=== PATIENT | male | born 1960 | race Caucasian/White ===

== ENCOUNTER 2017-10-29 19:24 | Emergency (ER) | payer OTHER, SELFPAY ==
[2017-10-29 19:57] LABS: Bilirubin Negative (Negative); Blood, Urine Negative (Negative); Clarity CLEAR (Clear); Glucose, Urine (Dipstick) Negative (Negative); Leukocyte Negative (Negative); Nitrite Negative (Negative); Protein, Urine (Dipstick) 30 mg/dL (Neg-Trace); Specific Gravity, Urine 1.021 (1.002-1.036); pH, Urine 6.5 (5.0-9.0)
[2017-10-29 19:59] LABS: Bacteria/HPF None Seen HPF (None Seen); Hyaline Casts/LPF 0-3 HYALINE CAST LPF (0-3 Hyaline); RBC/HPF 0-3 HPF (0-3); Squamous Epithelial 0-3 HPF (0-3); WBC/HPF 0-3 HPF (0-3)
[2017-10-29 20:23] LABS: #Basophils 0.1 thou/uL (0.0-0.2); #Eosinphils 0.4 thou/uL (0.0-0.7); #Lymphocytes 3.3 thou/uL (1.20-3.40); #Monocytes 0.8 thou/uL (0.11-0.59); #Neutrophils 7.5 thou/uL (1.40-6.50); %Basophils 0.7 % (0.0-1.0); %Eosinophils 3.1 % (0.0-10.0); %Lymphocytes 27.6 % (21.0-51.0); %Monocytes 6.9 % (0.0-10.0); %Neutrophils 61.8 % (42.0-75.0); Hemoglobin 16.9 g/dL (14.0-18.0); Mean Corpuscular HGB CONC 34.2 g/dL (32.0-36.0); Mean Corpuscular Hemoglobin 33.5 pg (27.0-31.0); Mean Corpuscular Volume 97.8 fl (80.0-94.0); Mean Platelet Volume 6.5 fL (7.4-10.4); Platelet Count 299 thou/uL (130-400); RBC Distribution Width 12.8 % (11.5-14.5); Red Blood Cell (RBC) Count 5.05 mill/uL (4.70-6.10); White Blood Cell (WBC) Count 12.1 thou/uL (4.8-10.8)
[2017-10-29 20:47] LABS: ALT (SGPT) 13 U/L (8-55); AST (SGOT) 19 U/L (5-34); Albumin 3.9 g/dL (3.5-5.0); Alkaline Phosphatase 109 U/L (40-150); Anion Gap 11 mmol/L (10-20); BUN (Urea Nitrogen) 19 mg/dL (8.4-25.7); Bilirubin, Total 0.3 mg/dL (0.2-1.2); Calc. Creatinine Clearance 0 mL/min (70-130); Calcium 9.5 mg/dL (7.8-10.44); Carbon Dioxide 24 mmol/L (22-29); Chloride 108 mmol/L (98-107); Estimated GFR-MDRD Greater than 90; Globulin 3.1 g/dL (2.4-3.5); Glucose 102 mg/dL (70-105); Potassium 4.1 mmol/L (3.5-5.1); Sodium 139 mmol/L (136-145)
[2017-10-29] MEDS ORDERED: Ketorolac Tromethamine 30 MG/ML VIAL ONE (22:47)
[2017-10-29] MEDS ORDERED: Cyclobenzaprine 10 MG TAB ONE (22:47)
--- NOTE | 2017-10-29 23:12 | RAD ---
PORTABLE CHEST: 10/29/2017 PROVIDED CLINICAL HISTORY: Wheezing. COMPARISON: None. FINDINGS: The cardiac and mediastinal silhouette are within normal limits. Linear perihilar opacities are note d, suggesting scarring or atelectasis. No focal consolidation, pleural fluid, or pneumothorax appare nt. IMPRESSION: No definite evidence for an acute cardiopulmonary process. POS: [facility]
--- NOTE | 2017-10-29 23:13 | RAD ---
LUMBAR SPINE RADIOGRAPHS THREE VIEWS: 10/29/2017 PROVIDED CLINICAL HISTORY: Low back pain. FINDINGS: Five vzm-gto-ickyqml lumbar type vertebral bodies are present. Lumbar alignment appears normal. Melquiades tebral body heights appear preserved. Pedicles appear intact. Surgical clips are seen. Vascular ca lcifications are seen. IMPRESSION: No evidence for an acute osseous abnormality. POS: [facility]
[2017-10-29] MEDS ORDERED: Morphine 10 MG/ML VIAL ONE (23:43)
--- NOTE | 2017-11-02 22:16 | EKG ---
Test Reason : Blood Pressure : / mmHG Vent. Rate : 057 BPM Atrial Rate : 057 BPM P-R Int : 172 ms QRS Dur : 086 ms QT Int : 450 ms P-R-T Axes : 043 037 128 degrees QTc Int : 438 ms Sinus bradycardia T wave abnormality, consider lateral ischemia Abnormal ECG Confirmed by CHON CUEVAS D.O. ([id number]), film or videotape editor DAWNA CUEVAS ([id number]) on 11/02/2017 10:14:36 PM Referred By: Confirmed By:CHON CUEVAS D.O.
== END 2017-10-30 00:10 | disposition home or self-care (01) ==
LOC: ERS 19:24
DX: M54.17 Radiculopathy, lumbosacral region (principal); I25.2 Old myocardial infarction; I10 Essential (primary) hypertension; F41.9 Anxiety disorder, unspecified; F17.210 Nicotine dependence, cigarettes, uncomplicated; Z79.899 Other long term (current) drug therapy
CPT/HCPCS: 36415; 71045; 72100; 80053; 81003; 81015; 85025; 93005; 96374; 96375; J1885; J2270

== ENCOUNTER 2018-11-06 15:09 | Outpatient (CLI) | payer MEDICARE ==
[~2018-11-06 15:09] MED LIST: Sodium Chloride 0.9% 15 ML NEB ONE
--- NOTE | 2018-11-06 17:06 | PRG ---
DATE OF SERVICE: 11/06/2018 HISTORY: Mr. Silvia De Leon is a 58-year-old gentleman, last seen in the [facility] Center approximately 2 years ago, who presents to the [facility] Center for evaluation of a wound of his left nzfwl-vct-cfjy amputation stump. The patient states that the wound for which he was seen approximately 2 years ago healed completely. He states that approximately 4 weeks ago he may have been bitten by an insect or spider. States that he developed swelling of his left dpkyf-enk-tdtv amputation stump and the previously healed wound opened. He states that he was seen in the emergency department and was placed on a course of p.o. antibiotics, specifically Keflex. The patient states that he also was seen by his primary care physician, Dr. Bryan after being seen in the emergency department. The patient states that he reported to the emergency department again on 10/29/2018 and at this time, placed on Augmentin and clindamycin. The patient was seen again by Dr. Bryan and at this time referred to the Wound Center for further evaluation and treatment. Apparently at the time of the patient's first followup visit with Dr. Bryan, the patient was given a prescription for Bactrim. CT scan of the left thigh showed no evidence of focal abscess or bony destruction. CT scan was obtained at the time of the patient's visit to the emergency department on 10/29/2018. PHYSICAL EXAMINATION: VITAL SIGNS: Temperature 97.6, pulse 67, respirations are 21, and blood pressure 188/78. EXTREMITIES: A wound of the left ialga-kln-miwb amputation stump is present, which measures approximately 3.0 x 3.0 cm. No purulent drainage is associated with the wound. Erythema of the skin surrounding the wound is present. No maceration of the skin of the periwound is noted. ASSESSMENT AND PLAN: 1. Wound of left foqyl-cmp-rjvn amputation stump as described above. Dressing changes of Medihoney followed by an ABD secured with tape will be initiated today. These dressing changes are to be performed on a daily basis after cleansing and irrigation. The patient will be performing his own dressing changes. The patient has been given a prescription for Synalar ointment 0.025% to apply to the emili wound for itching up to b.i.d. the patient has been instructed to continue to cleanse the wound of his left tgdwz-cgg-faog amputation stump with Dove soap and water at the time of dressing changes. I will see Mr. De Leon again in 1 week. 2. Hypertension. 3. Peripheral vascular disease. Job ID: [id number] MTDD
== END 2018-11-06 15:10 | disposition home or self-care (01) ==
LOC: WCC 15:09
PROVIDERS: ATTEND Family Medicine
DX: T87.89 Other complications of amputation stump (principal); I10 Essential (primary) hypertension; I73.9 Peripheral vascular disease, unspecified; Z89.612 Acquired absence of left leg above knee
CPT/HCPCS: 97139; 97602; G0463; 99213; A4218

== ENCOUNTER 2018-11-19 11:11 | Outpatient (CLI) | payer MEDICARE ==
--- NOTE | 2018-11-19 17:30 | PRG ---
DATE OF SERVICE: 11/19/2018 HISTORY: Mr. Silvia De Leon is a 58-year-old gentleman, previously seen in the Wound Center approximately 2 years ago, who now presents to the Wound Center for evaluation of a wound of his left cuoxt-ehi-pxug amputation stump. At the time of the patient's last visit, the patient stated that the wound, for which he was seen approximately 2 years ago, healed completely. He stated that approximately 4 weeks previously, he may have been bitten by an insect or spider. He stated that he developed swelling of his left enspr-kfx-erbt amputation stump and the previously healed wound opened. He stated that he was seen in the emergency department and placed on a course of p.o. antibiotics, specifically Keflex. The patient stated that he was also seen by his primary care physician, Dr. Bryan, after being seen in the emergency department. The patient stated that he reported to the emergency department again on 10/29/2018, and at this time, was placed on Augmentin and clindamycin. The patient was seen again by Dr. Bryan, and at this time, referred to the Wound Center for further evaluation and treatment. Apparently, at the time of the patient's first followup visit with Dr. Bryan, the patient was given a prescription for Bactrim. CT scan of the left thigh showed no evidence of focal abscess or bony destruction. CT scan was obtained at the time of the patient's visit to the emergency department on 10/29/2018. Today, the patient complains of severe pain associated with his left dckqf-umc-ihoh amputation stump. PHYSICAL EXAMINATION: VITAL SIGNS: Temperature 97.6, pulse 69, respirations 22, blood pressure 192/84. EXTREMITIES: A wound of the left emjnv-krq-jdki amputation stump is present, which measures approximately 3.0 x 6.0 cm. The dimensions of the wound at the time of the patient's last visit were approximately 3.0 x 3.0 cm. No purulent drainage is associated with the wound. Erythema of the skin surrounding the wound is present. No maceration of the skin of the periwound is noted. The wound is exquisitely tender to palpation. A culture of the wound was obtained with a culturette. The patient declined excision of tissue for a tissue culture. ASSESSMENT AND PLAN: 1. Wound of left twrpt-lyk-owki amputation stump as described above. Dressing changes of Medihoney and Allevyn are to be performed 3 times per week after cleansing and irrigation with the assistance of Home Health. The patient has also been given a prescription for clindamycin 300 mg, #30, one p.o. t.i.d. x10 days. I will see Mr. De Leon again in 1 week. 2. Hypertension. 3. Peripheral vascular disease. Job ID: [id number]
--- NOTE | 2018-11-20 19:29 | CON ---
DATE OF CONSULTATION: HISTORY OF PRESENT ILLNESS: Mr. De Leon is status post aortobifemoral bypass in [place] in June of 2016. He subsequently underwent a left above knee amputation. He was discharged to home and came to the hospital here the following day with gangrene of his stump. The left limb of his graft was occluded. He subsequently underwent ezvgl-le-bcpc fem-fem bypass and then revision of his amputation with wound VAC placement to closure. The stump did eventually close. About a month ago, he says he got a bug bite on his stump that caused edema. The edema caused the previous VAC site to reopen and it has been draining since. He does not walk. He only uses a wheelchair. He does not even lay down due to pain in his left stump. 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 The femur was also debrided more proximal. He also noticed that for the past month, he has had significant edema of his right leg. He has no history of congestive failure. He has no previous history of DVT or edema. At the time of his admission, white blood cell count is 10.3, BNP is 140, creatinine is 0.82, potassium is 3.9. I have been asked to see him to assess his stump. On physical exam, he has a deformed appearance of his stump due to the previous healing by secondary intention. The hamstring muscles have been debrided way back. The femur is not visible. He does have some open skin. The wound is not currently draining and there is no odor. ASSESSMENT AND PLAN: It sounds like, he has edema in both of his legs from multifactorial source. He is constantly with his legs dependent and his hip joints have been in the right angle. Of course, this decreases venous return and can cause significant amounts of edema. He continues to smoke. He continues to carry probably 80 to 100 pounds of extra weight in his belly. With an elevated BNP, I am going to check an echo to see if he has some element of congestive failure. I will also give him a single dose of Lasix this afternoon to see what that does as far as increasing his urine output. Any sort of revision to his stump would require hip disarticulation due to the previous extensive nature of his vascular disease. I would avoid this at all costs. I will ask Wound Care to see him and start doing dressing changes on his open area of his stump. This will probably be the in-game in his wound treatment. Job ID: [id number]
== END 2018-11-19 11:12 | disposition home or self-care (01) ==
LOC: WCC 11:11
PROVIDERS: ATTEND Family Medicine
DX: T87.89 Other complications of amputation stump (principal); I10 Essential (primary) hypertension; I73.9 Peripheral vascular disease, unspecified; Z89.612 Acquired absence of left leg above knee
CPT/HCPCS: 87070; 87205; A4218

== ENCOUNTER 2018-11-20 02:44 | Inpatient (IN) | payer MEDICARE ==
[2018-11-20] MEDS ORDERED: Ondansetron PF 4 MG/2 ML Vial ONE (03:35)
[2018-11-20] MEDS ORDERED: Morphine 4 MG/ML VIAL ONE (03:35)
[2018-11-20] MEDS ORDERED: HYDROcodone/Acetaminophen 5/325 mg Tablet ONE (04:22)
[2018-11-20] MEDS ORDERED: HYDROcodone/Acetaminophen 10/325 mg Tablet ONE (04:42)
[2018-11-20] MEDS ORDERED: Ondansetron ODT 4 MG TAB SL PRN (05:23)
[2018-11-20] MEDS ORDERED: Ondansetron PF 4 MG/2 ML Vial IVP PRN ×2 (05:23→11:48)
[2018-11-20] MEDS ORDERED: HYDROcodone/Acetaminophen 5/325 mg Tablet PO PRN ×3 (05:23→11:48)
[2018-11-20] MEDS ORDERED: Acetaminophen 325 MG TAB PO PRN ×2 (05:23→11:48)
[2018-11-20 05:57] VITALS: BMI 38.5
--- NOTE | 2018-11-20 08:10 | RAD ---
AP view chest is obtained. The lung HISTORY: Rule out infiltrates AP view chest demonstrates the lungs to be well aerated. No evidence of active intrathoracic disease seen. No evidence of effusions pneumonia or pneumothorax seen IMPRESSION: unremarkable AP view chest
[2018-11-20 09:59] LABS: #Basophils 0.1 thou/uL (0.0-0.2); #Eosinphils 0.5 thou/uL (0.0-0.7); #Lymphocytes 2.8 thou/uL (1.20-3.40); #Neutrophils 5.9 thou/uL (1.40-6.50); %Basophils 0.8 % (0.0-1.0); %Lymphocytes 27.4 % (21.0-51.0); %Monocytes 9.7 % (0.0-10.0); Hemoglobin 13.8 g/dL (14.0-18.0); Mean Corpuscular HGB CONC 33.8 g/dL (32.0-36.0); Mean Corpuscular Hemoglobin 34.2 pg (27.0-31.0); Mean Platelet Volume 6.5 fL (7.4-10.4); Platelet Count 288 thou/uL (130-400); RBC Distribution Width 12.7 % (11.5-14.5); Red Blood Cell (RBC) Count 4.03 mill/uL (4.70-6.10); White Blood Cell (WBC) Count 10.3 thou/uL (4.8-10.8)
[2018-11-20 10:02] LABS: INR-International Normal Ratio 1.1; PTT 35.2 SEC (22.9-36.1); Prothrombin Time 14.2 SEC (12.0-14.7)
[2018-11-20 10:15] LABS: ALT (SGPT) 10 U/L (8-55); AST (SGOT) 20 U/L (5-34); Albumin 3.7 g/dL (3.5-5.0); Alkaline Phosphatase 80 U/L (40-150); Anion Gap 10 mmol/L (10-20); BUN (Urea Nitrogen) 18 mg/dL (8.4-25.7); Bilirubin, Total 0.3 mg/dL (0.2-1.2); Calc. Creatinine Clearance 153 mL/min (70-130); Calcium 9.1 mg/dL (7.8-10.44); Carbon Dioxide 26 mmol/L (22-29); Chloride 106 mmol/L (98-107); Estimated GFR-MDRD Greater than 90; Glucose 85 mg/dL (70-105); Potassium 3.9 mmol/L (3.5-5.1); Protein, Total 6.7 g/dL (6.0-8.3); Sodium 138 mmol/L (136-145)
[2018-11-20] MEDS ORDERED: Guaifenesin DM 100-10/5 ML UDCUP PO PRN (11:48)
[2018-11-20] MEDS ORDERED: Bisacodyl 10 MG SUPP PR PRN (11:48)
[2018-11-20] MEDS ORDERED: traMADol HCl 50 MG TAB PO PRN (11:49)
[2018-11-20] MEDS: Piperacillin/Tazobactam 4.5 GM in Sodium Chloride 0.9% 100 ML IVPB SCH ×2 (13:05→21:41)
[2018-11-20] MEDS: Fentanyl 100 MCG/2 ML VIAL SLOW IVP PRN ×3 (13:05→23:28)
[2018-11-20] MEDS ORDERED: Furosemide 40 MG/4 ML VIAL SLOW IVP SCH (13:30)
[2018-11-20] MEDS ORDERED: Atenolol 50 MG TAB PO SCH (13:30)
[2018-11-20] MEDS ORDERED: Amlodipine 10 MG TAB PO SCH (13:30)
[2018-11-20] MEDS: HYDROcodone/Acetaminophen 10/325 mg Tablet PO PRN (15:50)
--- NOTE | 2018-11-20 15:57 | HP ---
REASON FOR ADMISSION: Left AKA stump infection. HISTORY OF PRESENTING ILLNESS: The patient gives history of having left above knee amputation stump infection from last 6 weeks. He has some purulent drainage. The patient apparently has had two cycles of different antibiotics. The initial one was Keflex and Bactrim, which was started by Dr. Bryan and on the , the patient came to emergency room and was started on Augmentin and clindamycin combination. He has finished both the courses and still has discharge and excruciating pain due to skin excoriation around the stump. The patient also mentions that he has had severe pain for last 2 years and is not happy with just Fairmont that he is getting. The patient also mentions that his right lower extremity has edema, it is buildup of edema from last few months per patient. He states he does not have any heart disease as far as he knows. PAST MEDICAL AND SURGICAL HISTORY: Hypertension, peripheral vascular disease, left below-knee amputation, right to left femoral-femoral bypass, aortobifemoral bypass in 2003, tobacco abuse, hernia repair in 1978. CURRENT MEDICATIONS: The patient is on, 1. Atenolol 50 mg twice daily. 2. Diazepam 10 mg twice daily p.r.n. 3. Norvasc 10 mg daily. 4. Fairmont 10/325 mg one tab q.8h hourly p.r.n. 5. MiraLAX 17 g daily. 6. Lyrica 75 mg twice daily. ALLERGIES: ALLERGIC TO MORPHINE, BUT IS COMFORTABLE TAKING NORCO. PERSONAL HISTORY: The patient smokes 1 pack a day. Does not abuse alcohol or drugs. FAMILY HISTORY: Mother has history of CHF. She is 74 years old. Father is living, has history of emphysema, he is 84 years old now. CODE STATUS: Full. REVIEW OF SYSTEMS: CONSTITUTIONAL: Negative for weight loss or gain, ability to conduct usual activities. SKIN: Negative for rash, itching. EYES: Negative for double vision, pain. ENT/MOUTH: Negative for nose bleeding, neck stiffness, pain, tenderness. CARDIOVASCULAR: Negative for palpitations, dyspnea on exertion, orthopnea. RESPIRATORY: Negative for shortness of breath, wheezing, cough, hemoptysis, fever or night sweats. GASTROINTESTINAL: Negative for poor appetite, abdominal pain, heartburn, nausea , vomiting, constipation, or diarrhea. GENITOURINARY: Negative for urgency, frequency, dysuria, nocturia. MUSCULOSKELETAL: Negative for pain, swelling. NEUROLOGIC/PSYCHIATRIC: Negative for anxiety, depression. ALLERGY/IMMUNOLOGIC: Negative for skin rash, bleeding tendency. PHYSICAL EXAMINATION: GENERAL: The patient is a 58-year-old male who currently complains of pain in his left AKA stump site. VITAL SIGNS: Blood pressure 150/70, pulse 64 per minute, respiratory rate 18 per minute, temperature 97.9 degrees Fahrenheit, saturating 95% on room air. NECK: Supple. No elevated JVD. HEENT: Eyes; extraocular muscles intact. Pupils reacting to light. Oral cavity, mucous membranes are moist. No exudates or congestion. CARDIOVASCULAR SYSTEM: S1, S2 heard. Regular rhythm. RESPIRATORY SYSTEM: Air entry 1+ bilateral. No rales or rhonchi. ABDOMEN: Soft bowel sounds heard. No tenderness, rigidity, or guarding. EXTREMITIES: Left AKA stump site has chronic ulceration with purulent material visible at the center of the stump. Peripheral pulses are 1+ bilateral. He has 1+ peripheral edema in the right lower extremity. Has extensive excoriation around stump. CENTRAL NERVOUS SYSTEM: No gross focal deficits noted. The patient is alert, awake, and oriented well. PSYCHIATRIC SYSTEM: The patient is a bit anxious and wants something for his pain. No hallucinations or delusions. LABORATORY DATA: White count of 10, H and H 13 and 40, platelet count 288, MCV is 101 with 57% neutrophils. PT/INR and PTT within normal limits. Electrolytes stable. BUN 18, creatinine 0.8. Serum glucose 85. Liver enzymes within normal limits. BNP is 140. Albumin is 3.7. Chest x-ray is unremarkable. EKG shows normal sinus rhythm at 63 beats per minute. There is nonspecific ST-T wave changes. CLINICAL IMPRESSION AND PLAN: The patient will be admitted to medical floor for left above knee amputation stump infection. We will obtain deep wound cultures from the stump area and place him on vancomycin and Zosyn for now. The patient is requesting fentanyl or stronger for his pain. We will also add lidocaine along with [place]mont. We will continue Norvasc, atenolol, MiraLAX, Senna at his home dosages. I have offered him Nicoderm patches, but the patient has refused the same. Pain Management consultation with Dr. Packer will be requested in view of the patient's chronic pain from last 2 years. At present, he also has excoriations around the left AKA stump and is adding to his chronic pain symptoms. Wound Care will also be consulted. I have spoken to Dr. Yaakov Villarreal, who has seen him before for revision of his AKA stump in the past. Job ID: [id number] MTDD
--- NOTE | 2018-11-20 17:52 | CON ---
DATE OF CONSULTATION: 11/20/2018 REASON FOR CONSULTATION: Stump pain after AKA. HISTORY OF PRESENT ILLNESS: The patient is a 58-year-old gentleman, status post left AKA 2 years ago with persistent chronic pain in the amputated leg, consistent with phantom limb pain. Six weeks ago, he began having increasing pain over his usual phantom limb type symptoms. He has purulent drainage and cellulitis and infection involving his stump. He has been on two rounds of antibiotics without improvement and is admitted for further treatment of both his pain and his AKA stump infection. He rates his pain at 10/10, previously received a single dose of fentanyl 25 mcg, and now rated at 7/10. He is on Lyrica 75 mg b.i.d. This has helped with the neuropathic pain and he states it is his best pain medicine with respect to relieving his symptoms, but he is concerned because he is having some swelling in the right lower extremity and fears the Lyrica maybe to blame for the swelling. He also was taking Bradley two to four daily with some benefit, but not much. His pain has increased significantly because of this ongoing infection. He denies any cardiovascular disease. He is not a diabetic. PAST MEDICAL HISTORY AND SURGICAL HISTORY: Consistent for the AKA. He has peripheral vascular disease, status post left AKA. He has had a fem-fem bypass and aortobifemoral bypass. He is a smoker and continues to smoke. CURRENT MEDICATIONS: Include; 1. Atenolol. 2. Diazepam. 3. Norvasc. 4. Bradley t.i.d. 5. MiraLAX. 6. Lyrica 75 b.i.d. ALLERGIES: NO KNOWN ALLERGIES. NOTE THAT THE PATIENT HAS REPORTED ALLERGY TO MORPHINE, BUT HE HAS HAD MORPHINE AND HAS NOT HAD ADVERSE EFFECT, BUT STATES IT DOES NOT WORK. SOCIAL HISTORY: He smokes a pack a day. Denies any alcohol or drug abuse issues. FAMILY HISTORY: Noncontributory. Father is living. Both have history of COPD, father and mother. REVIEW OF SYSTEMS: Negative with exception of HPI. PHYSICAL EXAMINATION: GENERAL: A 58-year-old gentleman, sitting up in a wheelchair. He is alert, oriented, conversive, in no distress, but uncomfortable. He is belligerent. VITAL SIGNS: BP 140/62, pulse was 70. Respiratory rate is nonlabored. NECK: Supple. No rigidity. HEENT: Unremarkable. HEART: Regular. ABDOMINAL: Soft. He is overweight. EXTREMITIES: Left AKA site, chronic ulceration of the stump. There is purulent drainage. There is erythema and induration consistent with cellulitis. Right lower extremity 1+ peripheral edema. WILLOW ANALYST: No significant side effects. LABORATORY DATA: As per in the chart. IMPRESSION AND PLAN: Status post left above-knee amputation. Symptoms consistent with phantom limb pain with acute exacerbation from ongoing cellulitis and stump infection. He may have a stump neuroma as well. We will place a fentanyl patch, continue Lyrica but increase the dose to t.i.d. He can have Bradley q.i.d. After his infection is healed, phantom limb pain could be treated effectively with dorsal root ganglion stimulation, and indeed that is the most efficacious treatment for that condition. We can follow up as an outpatient if needed. Job ID: [id number]
[2018-11-20] MEDS: Atenolol 50 MG TAB PO SCH (20:18)
[2018-11-20] MEDS: Senokot S 8.6-50 MG TAB PO SCH (20:18)
[2018-11-20] MEDS: Famotidine 20 MG TAB PO SCH (20:18)
[2018-11-20] MEDS: Pregabalin 75 MG CAP PO SCH (20:19)
[2018-11-20] MEDS: HYDROcodone/Acetaminophen 7.5/325 mg Tablet PO PRN (20:20)
[2018-11-20] MEDS: Lidocaine Patch Removal 1 EACH TOP SCH ×2 (20:22→20:24)
[2018-11-20] MEDS ORDERED: Vancomycin HCl 1 GM in Premix Bag 1 BAG IVPB SCH (21:00)
[2018-11-20] MEDS: Zolpidem Tartrate 5 MG TAB PO PRN (23:36)
[2018-11-21] MEDS: HYDROcodone/Acetaminophen 10/325 mg Tablet PO PRN ×6 (00:49→23:19)
[2018-11-21] MEDS: Vancomycin HCl 1.5 GM in Sodium Chloride 0.9% 250 ML 300 ML IVPB SCH ×2 (00:52→12:44)
[2018-11-21] MEDS: hydrALAZINE 20 MG/ML VIAL SLOW IVP PRN ×2 (01:08→06:33)
[2018-11-21] MEDS: Fentanyl 100 MCG/2 ML VIAL SLOW IVP PRN ×2 (04:40→08:35)
[2018-11-21] MEDS: Piperacillin/Tazobactam 4.5 GM in Sodium Chloride 0.9% 100 ML IVPB SCH ×3 (04:50→19:57)
[2018-11-21 05:19] LABS: #Basophils 0.1 thou/uL (0.0-0.2); #Eosinphils 0.8 thou/uL (0.0-0.7); #Lymphocytes 2.9 thou/uL (1.20-3.40); #Neutrophils 5.9 thou/uL (1.40-6.50); %Eosinophils 7.4 % (0.0-10.0); %Lymphocytes 27.4 % (21.0-51.0); %Monocytes 9.3 % (0.0-10.0); %Neutrophils 54.9 % (42.0-75.0); Hemoglobin 14.5 g/dL (14.0-18.0); Mean Corpuscular HGB CONC 32.8 g/dL (32.0-36.0); Mean Corpuscular Hemoglobin 33.6 pg (27.0-31.0); Mean Platelet Volume 6.8 fL (7.4-10.4); Platelet Count 297 thou/uL (130-400); RBC Distribution Width 12.6 % (11.5-14.5); Red Blood Cell (RBC) Count 4.32 mill/uL (4.70-6.10); White Blood Cell (WBC) Count 10.7 thou/uL (4.8-10.8)
[2018-11-21 05:34] LABS: Anion Gap 11 mmol/L (10-20); BUN (Urea Nitrogen) 16 mg/dL (8.4-25.7); Calc. Creatinine Clearance 143 mL/min (70-130); Calcium 9.5 mg/dL (7.8-10.44); Carbon Dioxide 26 mmol/L (22-29); Chloride 103 mmol/L (98-107); Estimated GFR-MDRD 89; Glucose 86 mg/dL (70-105); Potassium 3.9 mmol/L (3.5-5.1); Sodium 136 mmol/L (136-145)
[2018-11-21] MEDS: Amlodipine 10 MG TAB PO SCH (08:33)
[2018-11-21] MEDS: Senokot S 8.6-50 MG TAB PO SCH ×2 (08:34→19:32)
[2018-11-21] MEDS: Famotidine 20 MG TAB PO SCH ×2 (08:34→19:33)
[2018-11-21] MEDS: Lidocaine 5% Patch TD SCH (08:34)
[2018-11-21] MEDS: Polyethylene Glycol 3350 17 GM Packet PO SCH (08:34)
[2018-11-21] MEDS: Pregabalin 75 MG CAP PO SCH ×2 (08:40→19:33)
[2018-11-21] MEDS: Atenolol 50 MG TAB PO SCH ×2 (08:42→19:33)
[2018-11-21] MEDS: Enoxaparin Sodium 40 MG/0.4 ML SYRINGE SC SCH (08:47)
--- NOTE | 2018-11-21 12:31 | PDOC.PN ---
- Subjective Encounter Start Date: 11/21/18 Encounter Start Time: 08:00 -: old records requested/rev Patient seen and examined. No new complaints. No overnight events pt has lot of pain at stump site - Objective Resuscitation Status - Order Detail: 11/20/18 11:41 Resuscitation Status Routine Resuscitation Status: FULL: Full Resuscitation MAR Reviewed: Yes Vital Signs & Weight: Vital Signs (12 hours) Temp Pulse Resp BP BP Pulse Ox 11/21/18 08:50 94 L 11/21/18 08:42 64 161/66 H 11/21/18 08:33 56 L 161/66 H 11/21/18 07:25 97.8 F 56 L 19 161/66 H 94 L 11/21/18 06:33 60 185/71 H 11/21/18 06:00 185/71 H 11/21/18 01:08 64 184/74 H Weight Admit Weight 246 lb 6 oz Weight 246 lb 6 oz I&O: 11/20/18 11/21/18 11/22/18 06:59 06:59 06:59 Intake Total 1320 Balance 1320 Result Diagrams: 11/21/18 04:35 11/21/18 04:35 Phys Exam - Physical Examination Constitutional: NAD HEENT: PERRLA, moist MMs, sclera anicteric Neck: no JVD, supple Respiratory: no wheezing, no rales, no rhonchi Cardiovascular: RRR, no significant murmur, no rub Gastrointestinal: soft, non-tender, no distention, positive bowel sounds Musculoskeletal: no edema, pulses present left AKA Neurological: non-focal, normal sensation Lymphatic: no nodes Psychiatric: normal affect Skin: no rash, normal turgor Dx/Plan (1) Amputation stump infection Code(s): T87.40 - INFECTION OF AMPUTATION STUMP, UNSPECIFIED EXTREMITY Status : Acute (2) Above knee amputation of left lower extremity Code(s): Z89.612 - ACQUIRED ABSENCE OF LEFT LEG ABOVE KNEE Status: Chronic (3) CAD (coronary artery disease) Code(s): I25.10 - ATHSCL HEART DISEASE OF [place] CORONARY ARTERY W/O ANG PCTRS Status: Chronic Qualifiers: (4) CKD (chronic kidney disease) stage 3, GFR 30-59 ml/min Status: Chronic (5) COPD (chronic obstructive pulmonary disease) Status: Chronic Qualifiers: (6) Chronic prescription opiate use Code(s): Z79.891 - DATABASES SOFTWARE CONSULTANT (CURRENT) USE OF OPIATE ANALGESIC Status: Chronic (7) Dyslipidemia Code(s): E78.5 - HYPERLIPIDEMIA, UNSPECIFIED Status: Chronic (8) GERD (gastroesophageal reflux disease) Code(s): K21.9 - GASTRO-ESOPHAGEAL REFLUX DISEASE WITHOUT ESOPHAGITIS Status: Chronic Qualifiers: (9) HTN (hypertension) Code(s): I10 - ESSENTIAL (PRIMARY) HYPERTENSION Status: Chronic Qualifiers: (10) Macrocytic anemia Code(s): D53.9 - NUTRITIONAL ANEMIA, UNSPECIFIED Status: Chronic (11) Obesity (BMI 30-39.9) Code(s): E66.9 - OBESITY, UNSPECIFIED Status: Chronic (12) PVD (peripheral vascular disease) Code(s): I73.9 - PERIPHERAL VASCULAR DISEASE, UNSPECIFIED Status: Chronic - Plan cont current plan of care, continue antibiotics * curently on vancomycin and zosyn for stump infection * pain clinic recommendation noted, will add fentanyl patch. * medication reviewed as below * symptomatic treatment Review of Systems - Review of Systems Eyes: negative: Pain, Vision Change, Conjunctivae Inflammation, Eyelid Inflammation, Redness, Other ENT: negative: Ear Pain, Ear Discharge, Nose Pain, Nose Discharge, Nose Congestion, Mouth Pain, Mouth Swelling, Throat Pain, Throat Swelling, Other Respiratory: negative: Cough, Dry, Shortness of Breath, Hemoptysis, SOB with Excertion, Pleuritic Pain, Sputum, Wheezing Cardiovascular: negative: chest pain, palpitations, orthopnea, paroxysmal nocturnal dyspnea, edema, light headedness, other Gastrointestinal: negative: Nausea, Vomiting, Abdominal Pain, Diarrhea, Constipation, Melena, Hematochezia, Other Genitourinary: negative: Dysuria, Frequency, Incontinence, Hematuria, Retention , Other Musculoskeletal: Leg Pain. negative: Neck Pain, Shoulder Pain, Arm Pain, Back Pain, Hand Pain, Foot Pain, Other - Medications/Allergies Allergies/Adverse Reactions: Allergies Allergy/AdvReac Type Severity Reaction Status Date / Time morphine Allergy Rash Verified 06/19/16 18:09 Medications: Current Medications Acetaminophen (Tylenol) 650 mg PO Q4H PRN PRN Reason: Headache/Fever Hydrocodone Bitart/Acetaminophen ([place] 10/325) 1 tab PO Q4H PRN PRN Reason: Severe Pain (7-10) Last Admin: 11/21/18 08:44 Dose: 1 tab Hydrocodone Bitart/Acetaminophen ([place] 5/325) 1 tab PO Q4H PRN PRN Reason: Mild Pain (1-3) Hydrocodone Bitart/Acetaminophen ([place] 7.5/325) 1 tab PO Q4H PRN PRN Reason: Moderate Pain (4-6) Last Admin: 11/20/18 20:20 Dose: 1 tab Amlodipine Besylate (Norvasc) 10 mg PO DAILY [facility] Last Admin: 11/21/18 08:33 Dose: 10 mg Atenolol (Tenormin) 50 mg PO BID [facility] Last Admin: 11/21/18 08:42 Dose: 50 mg Bisacodyl (Dulcolax) 10 mg [place] DAILYPRN PRN PRN Reason: Constipation Enoxaparin Sodium (Lovenox) 40 mg SC 0900 [facility] Last Admin: 11/21/18 08:47 Dose: Not Given Famotidine (Pepcid) 20 mg PO BID [facility] Last Admin: 11/21/18 08:34 Dose: 20 mg Fentanyl (Sublimaze) 25 mcg SLOW IVP Q4H PRN PRN Reason: Severe Pain (7-10) Last Admin: 11/21/18 08:35 Dose: 25 mcg Fentanyl (Duragesic) 25 mcg TD Q3D [facility] Guaifenesin/Dextromethorphan (Robitussin Dm) 15 ml PO Q4H PRN PRN Reason: Cough Hydralazine HCl (Apresoline) 10 mg SLOW IVP Q4H PRN PRN Reason: Hypertension Last Admin: 11/21/18 06:33 Dose: 10 mg Piperacillin Sod/Tazobactam (Sod 4.5 gm/ Sodium Chloride) 100 mls @ 200 mls/hr IVPB Q8HR [facility] Last Admin: 11/21/18 04:50 Dose: 100 mls Vancomycin HCl 1.5 gm/ Sodium (Chloride) 300 mls @ 200 mls/hr IVPB 0100,1300 [facility] Last Admin: 11/21/18 00:52 Dose: 300 mls Lidocaine (Lidoderm 5% Patch) 1 patch TD DAILY [facility] Last Admin: 11/21/18 08:34 Dose: Not Given Miscellaneous Medication (Pharmacy To Dose) 0 each IVPB .DAILY PRN PRN Reason: LABS Miscellaneous Medication (Lidocaine Patch Removal) 0 each TOP 2100 [facility] Last Admin: 11/20/18 20:24 Dose: Not Given Ondansetron HCl (Zofran) 4 mg IVP Q6H PRN PRN Reason: Nausea/Vomiting Polyethylene Glycol (Miralax) 17 gm PO DAILY [facility] Last Admin: 11/21/18 08:34 Dose: Not Given Pregabalin (Lyrica) 75 mg PO BID [facility] Last Admin: 11/21/18 08:40 Dose: 75 mg Senna/Docusate Sodium (Senokot S) 2 tab PO BID [facility] Last Admin: 11/21/18 08:34 Dose: 2 tab Tramadol HCl (Ultram) 50 mg PO Q6H PRN PRN Reason: Pain Zolpidem Tartrate (Ambien) 5 mg PO HSPRN PRN PRN Reason: Insomnia Last Admin: 11/20/18 23:36 Dose: 5 mg
[2018-11-21] MEDS ORDERED: Bacitracin Zinc Ointment 30 gm TUBE TOP PRN (15:13)
[2018-11-21] MEDS: Lidocaine Patch Removal 1 EACH TOP SCH (19:35)
[2018-11-21] MEDS: Bacitracin Zinc Ointment 30 gm TUBE TOP SCH (19:35)
--- NOTE | 2018-11-21 21:22 | EKG ---
Test Reason : PREOP Blood Pressure : / mmHG Vent. Rate : 063 BPM Atrial Rate : 063 BPM P-R Int : 170 ms QRS Dur : 086 ms QT Int : 440 ms P-R-T Axes : 036 015 136 degrees QTc Int : 450 ms Normal sinus rhythm T wave abnormality, consider lateral ischemia Abnormal ECG When compared with ECG of 29-OCT-2017 21:06, No significant change was found Confirmed by Jesus DIETZ ([id number]) on 11/21/2018 9:22:13 PM Referred By: LINDA Confirmed By:Jesus DIETZ
[2018-11-22] MEDS: Vancomycin HCl 1.5 GM in Sodium Chloride 0.9% 250 ML 300 ML IVPB SCH ×2 (00:54→12:57)
[2018-11-22] MEDS: hydrALAZINE 20 MG/ML VIAL SLOW IVP PRN ×2 (00:54→08:20)
[2018-11-22] MEDS: HYDROcodone/Acetaminophen 10/325 mg Tablet PO PRN ×5 (03:13→20:53)
[2018-11-22] MEDS: Piperacillin/Tazobactam 4.5 GM in Sodium Chloride 0.9% 100 ML IVPB SCH ×3 (06:14→21:06)
[2018-11-22] MEDS: Atenolol 50 MG TAB PO SCH ×2 (08:18→20:54)
[2018-11-22] MEDS: Senokot S 8.6-50 MG TAB PO SCH ×2 (08:18→20:57)
[2018-11-22] MEDS: Famotidine 20 MG TAB PO SCH ×2 (08:19→20:54)
[2018-11-22] MEDS: Pregabalin 75 MG CAP PO SCH ×2 (08:19→20:55)
[2018-11-22] MEDS: Amlodipine 10 MG TAB PO SCH (08:20)
[2018-11-22] MEDS ORDERED: Artificial Tears 18 DROP/0.9 ML EA EYE PRN (08:25)
[2018-11-22] MEDS ORDERED: Cepastat Lozenges 1 LOZ PO PRN (08:25)
[2018-11-22] MEDS ORDERED: cloNIDine 0.1 MG TAB PO PRN (08:25)
[2018-11-22] MEDS ORDERED: Diabetic Tussin 200 MG/10 ML UDCUP PO PRN (08:25)
[2018-11-22] MEDS ORDERED: Loperamide HCl 2 MG CAP PO PRN (08:25)
[2018-11-22] MEDS ORDERED: Loratadine 10 MG TAB PO PRN (08:25)
[2018-11-22] MEDS ORDERED: Ondansetron ODT 4 MG TAB PO PRN (08:25)
[2018-11-22] MEDS ORDERED: Sodium Chloride 0.65% Nasal 44 ML BOT EA NARE PRN (08:25)
[2018-11-22] MEDS: Polyethylene Glycol 3350 17 GM Packet PO SCH (08:38)
[2018-11-22] MEDS: Enoxaparin Sodium 40 MG/0.4 ML SYRINGE SC SCH (08:38)
[2018-11-22] MEDS: Bacitracin Zinc Ointment 30 gm TUBE TOP SCH ×2 (08:39→20:49)
[2018-11-22] MEDS: Lidocaine 5% Patch TD SCH (08:39)
--- NOTE | 2018-11-22 11:45 | PDOC.PN ---
- Subjective Encounter Start Date: 11/22/18 Encounter Start Time: 10:00 Patient seen and examined. No new complaints. No overnight events - Objective Resuscitation Status - Order Detail: 11/20/18 11:41 Resuscitation Status Routine Resuscitation Status: FULL: Full Resuscitation MAR Reviewed: Yes Vital Signs & Weight: Vital Signs (12 hours) Temp Pulse Resp BP BP Pulse Ox 11/22/18 10:04 187/83 H 11/22/18 09:00 96 11/22/18 08:20 60 200/65 H 11/22/18 08:18 60 200/65 H 11/22/18 08:00 97.6 F 59 L 16 200/65 H 96 11/22/18 04:00 97.5 F L 68 18 178/92 H 94 L 11/22/18 00:54 69 11/22/18 00:00 98.4 F 69 18 96 Weight Admit Weight 246 lb 6 oz Weight 246 lb 6 oz I&O: 11/21/18 11/22/18 11/23/18 06:59 06:59 06:59 Intake Total 1320 1420 Output Total 1600 Balance 1320 -180 Result Diagrams: 11/21/18 04:35 11/21/18 04:35 Phys Exam - Physical Examination Constitutional: NAD HEENT: PERRLA, moist MMs, sclera anicteric Neck: no JVD, supple Respiratory: no wheezing, no rales, no rhonchi Cardiovascular: RRR, no significant murmur, no rub Gastrointestinal: soft, non-tender, no distention, positive bowel sounds left AKA Neurological: non-focal, normal sensation Lymphatic: no nodes Psychiatric: normal affect Skin: no rash, normal turgor Dx/Plan (1) Amputation stump infection Code(s): T87.40 - INFECTION OF AMPUTATION STUMP, UNSPECIFIED EXTREMITY Status : Acute (2) Above knee amputation of left lower extremity Code(s): Z89.612 - ACQUIRED ABSENCE OF LEFT LEG ABOVE KNEE Status: Chronic (3) CAD (coronary artery disease) Code(s): I25.10 - ATHSCL HEART DISEASE OF [place] CORONARY ARTERY W/O ANG PCTRS Status: Chronic Qualifiers: (4) CKD (chronic kidney disease) stage 3, GFR 30-59 ml/min Status: Chronic (5) COPD (chronic obstructive pulmonary disease) Status: Chronic Qualifiers: (6) Chronic prescription opiate use Code(s): Z79.891 - [employer]ODUCTION SUPPORT [employer]INE[employer] (CURRENT) USE OF OPIATE ANALGESIC Status: Chronic (7) Dyslipidemia Code(s): E78.5 - HYPERLIPIDEMIA, UNSPECIFIED Status: Chronic (8) GERD (gastroesophageal reflux disease) Code(s): K21.9 - GASTRO-ESOPHAGEAL REFLUX DISEASE WITHOUT ESOPHAGITIS Status: Chronic Qualifiers: (9) HTN (hypertension) Code(s): I10 - ESSENTIAL (PRIMARY) HYPERTENSION Status: Chronic Qualifiers: (10) Macrocytic anemia Code(s): D53.9 - NUTRITIONAL ANEMIA, UNSPECIFIED Status: Chronic (11) Obesity (BMI 30-39.9) Code(s): E66.9 - OBESITY, UNSPECIFIED Status: Chronic (12) PVD (peripheral vascular disease) Code(s): I73.9 - PERIPHERAL VASCULAR DISEASE, UNSPECIFIED Status: Chronic - Plan cont current plan of care, continue antibiotics * continue pain control * he will need outpt pain clinic follow up for his chronic pain management * medication reviewed as below * symptomatic treatment * continue empiric antibiotics * add hydralazin and clonidine as needed for Hypertension. Review of Systems - Review of Systems Eyes: negative: Pain, Vision Change, Conjunctivae Inflammation, Eyelid Inflammation, Redness, Other ENT: negative: Ear Pain, Ear Discharge, Nose Pain, Nose Discharge, Nose Congestion, Mouth Pain, Mouth Swelling, Throat Pain, Throat Swelling, Other Respiratory: negative: Cough, Dry, Shortness of Breath, Hemoptysis, SOB with Excertion, Pleuritic Pain, Sputum, Wheezing Cardiovascular: negative: chest pain, palpitations, orthopnea, paroxysmal nocturnal dyspnea, edema, light headedness, other Gastrointestinal: negative: Nausea, Vomiting, Abdominal Pain, Diarrhea, Constipation, Melena, Hematochezia, Other Genitourinary: negative: Dysuria, Frequency, Incontinence, Hematuria, Retention , Other Skin: negative: Rash, Lesions, Tyrel, Bruising, Other - Medications/Allergies Allergies/Adverse Reactions: Allergies Allergy/AdvReac Type Severity Reaction Status Date / Time morphine Allergy Rash Verified 06/19/16 18:09 Medications: Current Medications Acetaminophen (Tylenol) 650 mg PO Q4H PRN PRN Reason: Headache/Fever Hydrocodone Bitart/Acetaminophen ([place] 10/325) 1 tab PO Q4H PRN PRN Reason: Severe Pain (7-10) Last Admin: 11/22/18 03:13 Dose: 1 tab Hydrocodone Bitart/Acetaminophen ([place] 5/325) 1 tab PO Q4H PRN PRN Reason: Mild Pain (1-3) Hydrocodone Bitart/Acetaminophen ([place] 7.5/325) 1 tab PO Q4H PRN PRN Reason: Moderate Pain (4-6) Last Admin: 11/20/18 20:20 Dose: 1 tab Amlodipine Besylate (Norvasc) 10 mg PO DAILY [facility] Last Admin: 11/22/18 08:20 Dose: 10 mg Artificial Tears (Tears Naturale) 2 drop EA EYE PRN PRN PRN Reason: Dry Eyes Atenolol (Tenormin) 50 mg PO BID [facility] Last Admin: 11/22/18 08:18 Dose: 50 mg Bacitracin Zinc (Bacitracin Zinc Ointment 30 Gm) 0 gm TOP Q12HR [facility] Last Admin: 11/22/18 08:39 Dose: 1 applic Bacitracin Zinc (Bacitracin Zinc Ointment 30 Gm) 0 gm TOP PRN PRN PRN Reason: Wound Care Bisacodyl (Dulcolax) 10 mg [place] DAILYPRN PRN PRN Reason: Constipation Clonidine (Catapres) 0.1 mg PO Q4H PRN PRN Reason: SBP GREATER THAN 160 Enoxaparin Sodium (Lovenox) 40 mg SC 0900 [facility] Last Admin: 11/22/18 08:38 Dose: Not Given Famotidine (Pepcid) 20 mg PO BID [facility] Last Admin: 11/22/18 08:19 Dose: 20 mg Fentanyl (Sublimaze) 25 mcg SLOW IVP Q4H PRN PRN Reason: Severe Pain (7-10) Last Admin: 11/21/18 08:35 Dose: 25 mcg Fentanyl (Duragesic) 25 mcg TD Q3D [facility] Last Admin: 11/21/18 12:40 Dose: 25 mcg Guaifenesin (Robitussin Sf) 200 mg PO Q4H PRN PRN Reason: Cough Guaifenesin/Dextromethorphan (Robitussin Dm) 15 ml PO Q4H PRN PRN Reason: Cough Hydralazine HCl (Apresoline) 10 mg SLOW IVP Q4H PRN PRN Reason: Hypertension Last Admin: 11/22/18 00:54 Dose: 10 mg Piperacillin Sod/Tazobactam (Sod 4.5 gm/ Sodium Chloride) 100 mls @ 200 mls/hr IVPB Q8HR [facility] Last Admin: 11/22/18 06:14 Dose: 100 mls Vancomycin HCl 1.5 gm/ Sodium (Chloride) 300 mls @ 200 mls/hr IVPB 0100,1300 [facility] Last Admin: 11/22/18 00:54 Dose: 300 mls Lidocaine (Lidoderm 5% Patch) 1 patch TD DAILY [facility] Last Admin: 11/22/18 08:39 Dose: Not Given Loperamide HCl (Imodium) 2 mg PO PRN PRN PRN Reason: Diarrhea/Loose Stools Loratadine (Claritin) 10 mg PO DAILYPRN PRN PRN Reason: Sinus Symptoms Miscellaneous Medication (Pharmacy To Dose) 0 each IVPB .DAILY PRN PRN Reason: LABS Miscellaneous Medication (Lidocaine Patch Removal) 0 each TOP 2100 [facility] Last Admin: 11/21/18 19:35 Dose: Not Given Ondansetron HCl (Zofran) 4 mg IVP Q6H PRN PRN Reason: Nausea/Vomiting Ondansetron HCl (Zofran Odt) 4 mg PO Q6H PRN PRN Reason: Nausea/Vomiting Polyethylene Glycol (Miralax) 17 gm PO DAILY [facility] Last Admin: 11/22/18 08:38 Dose: Not Given Pregabalin (Lyrica) 75 mg PO BID [facility] Last Admin: 11/22/18 08:19 Dose: 75 mg Senna/Docusate Sodium (Senokot S) 2 tab PO BID [facility] Last Admin: 11/22/18 08:18 Dose: 2 tab Sodium Chloride ([place] Nasal [place] 0.65%) 0 ml EA NARE QIDPRN PRN PRN Reason: Nasal Congestion Throat Lozenges (Cepastat Lozenges) 1 tiffanie PO Q2H PRN PRN Reason: Sore Throat Tramadol HCl (Ultram) 50 mg PO Q6H PRN PRN Reason: Pain Zolpidem Tartrate (Ambien) 5 mg PO HSPRN PRN PRN Reason: Insomnia Last Admin: 11/20/18 23:36 Dose: 5 mg
[2018-11-22 12:32] LABS: Vancomycin, Trough 17.7 ug/mL
[2018-11-22] MEDS ORDERED: Fentanyl 100 MCG/2 ML VIAL SLOW IVP PRN (14:35)
[2018-11-22] MEDS: Lidocaine Patch Removal 1 EACH TOP SCH (20:55)
[2018-11-22] MEDS: Zolpidem Tartrate 5 MG TAB PO PRN (22:57)
[2018-11-23] MEDS: Vancomycin HCl 1.5 GM in Sodium Chloride 0.9% 250 ML 300 ML IVPB SCH ×2 (00:48→14:18)
[2018-11-23] MEDS: HYDROcodone/Acetaminophen 10/325 mg Tablet PO PRN ×6 (00:49→20:52)
[2018-11-23] MEDS: Piperacillin/Tazobactam 4.5 GM in Sodium Chloride 0.9% 100 ML IVPB SCH ×3 (04:56→23:50)
[2018-11-23] MEDS: Pregabalin 75 MG CAP PO SCH ×2 (08:38→20:03)
[2018-11-23] MEDS: Famotidine 20 MG TAB PO SCH ×2 (08:39→20:04)
[2018-11-23] MEDS: Atenolol 50 MG TAB PO SCH ×2 (08:39→20:09)
[2018-11-23] MEDS: Senokot S 8.6-50 MG TAB PO SCH ×2 (08:39→20:04)
[2018-11-23] MEDS: Polyethylene Glycol 3350 17 GM Packet PO SCH (08:40)
[2018-11-23] MEDS: Enoxaparin Sodium 40 MG/0.4 ML SYRINGE SC SCH (08:40)
[2018-11-23] MEDS: Amlodipine 10 MG TAB PO SCH (08:40)
[2018-11-23] MEDS: Lidocaine 5% Patch TD SCH (08:41)
[2018-11-23] MEDS: Bacitracin Zinc Ointment 30 gm TUBE TOP SCH ×2 (08:42→20:04)
[2018-11-23] MEDS ORDERED: Furosemide 40 MG/4 ML VIAL SLOW IVP SCH (11:15)
--- NOTE | 2018-11-23 11:59 | PDOC.PN ---
- Subjective Encounter Start Date: 11/23/18 Encounter Start Time: 09:30 pt c/o leg edema, his pain is not well controlled - Objective Resuscitation Status - Order Detail: 11/20/18 11:41 Resuscitation Status Routine Resuscitation Status: FULL: Full Resuscitation MAR Reviewed: Yes Vital Signs & Weight: Vital Signs (12 hours) Temp Pulse Resp BP BP BP Pulse Ox 11/23/18 11:16 97.7 F 67 16 164/79 H 11/23/18 08:40 60 157/56 H 11/23/18 08:39 60 157/56 H 11/23/18 08:36 96 11/23/18 08:00 96.2 F L 59 L 16 200/82 H 96 11/23/18 00:00 97.9 F 53 L 16 151/58 H 91 L Weight Admit Weight 246 lb 6 oz Weight 246 lb 6 oz I&O: 11/22/18 11/23/18 11/24/18 06:59 06:59 06:59 Intake Total 1420 2830 Output Total 1600 1025 Balance -180 1805 Result Diagrams: 11/21/18 04:35 11/21/18 04:35 Phys Exam - Physical Examination Constitutional: NAD HEENT: PERRLA, moist MMs, sclera anicteric Neck: no JVD, supple Respiratory: no wheezing, no rales, no rhonchi Cardiovascular: RRR, no significant murmur, no rub Gastrointestinal: soft, non-tender, no distention, positive bowel sounds obesity left AKA Neurological: non-focal, normal sensation Lymphatic: no nodes Psychiatric: normal affect Skin: no rash, normal turgor Dx/Plan (1) Amputation stump infection Code(s): T87.40 - INFECTION OF AMPUTATION STUMP, UNSPECIFIED EXTREMITY Status : Acute (2) Above knee amputation of left lower extremity Code(s): Z89.612 - ACQUIRED ABSENCE OF LEFT LEG ABOVE KNEE Status: Chronic (3) CAD (coronary artery disease) Code(s): I25.10 - ATHSCL HEART DISEASE OF [place] CORONARY ARTERY W/O ANG PCTRS Status: Chronic Qualifiers: (4) CKD (chronic kidney disease) stage 3, GFR 30-59 ml/min Status: Chronic (5) COPD (chronic obstructive pulmonary disease) Status: Chronic Qualifiers: (6) Chronic prescription opiate use Code(s): Z79.891 - SNF (CURRENT) USE OF OPIATE ANALGESIC Status: Chronic (7) Dyslipidemia Code(s): E78.5 - HYPERLIPIDEMIA, UNSPECIFIED Status: Chronic (8) GERD (gastroesophageal reflux disease) Code(s): K21.9 - GASTRO-ESOPHAGEAL REFLUX DISEASE WITHOUT ESOPHAGITIS Status: Chronic Qualifiers: (9) HTN (hypertension) Code(s): I10 - ESSENTIAL (PRIMARY) HYPERTENSION Status: Chronic Qualifiers: (10) Macrocytic anemia Code(s): D53.9 - NUTRITIONAL ANEMIA, UNSPECIFIED Status: Chronic (11) Obesity (BMI 30-39.9) Code(s): E66.9 - OBESITY, UNSPECIFIED Status: Chronic (12) PVD (peripheral vascular disease) Code(s): I73.9 - PERIPHERAL VASCULAR DISEASE, UNSPECIFIED Status: Chronic - Plan cont current plan of care, continue antibiotics * medication reviewed as below * symptomatic treatment * continue empiric antibiotics * pain control * wound care. * will give lasix one time Review of Systems - Review of Systems ENT: negative: Ear Pain, Ear Discharge, Nose Pain, Nose Discharge, Nose Congestion, Mouth Pain, Mouth Swelling, Throat Pain, Throat Swelling, Other Respiratory: negative: Cough, Dry, Shortness of Breath, Hemoptysis, SOB with Excertion, Pleuritic Pain, Sputum, Wheezing Cardiovascular: negative: chest pain, palpitations, orthopnea, paroxysmal nocturnal dyspnea, edema, light headedness, other Gastrointestinal: negative: Nausea, Vomiting, Abdominal Pain, Diarrhea, Constipation, Melena, Hematochezia, Other Genitourinary: negative: Dysuria, Frequency, Incontinence, Hematuria, Retention , Other Musculoskeletal: Leg Pain. negative: Neck Pain, Shoulder Pain, Arm Pain, Back Pain, Hand Pain, Foot Pain, Other - Medications/Allergies Allergies/Adverse Reactions: Allergies Allergy/AdvReac Type Severity Reaction Status Date / Time morphine Allergy Rash Verified 06/19/16 18:09 Medications: Current Medications Acetaminophen (Tylenol) 650 mg PO Q4H PRN PRN Reason: Headache/Fever Last Admin: 11/23/18 11:01 Dose: 650 mg Hydrocodone Bitart/Acetaminophen ([place] 10/325) 1 tab PO Q4H PRN PRN Reason: Severe Pain (7-10) Last Admin: 11/23/18 08:58 Dose: 1 tab Hydrocodone Bitart/Acetaminophen ([place] 5/325) 1 tab PO Q4H PRN PRN Reason: Mild Pain (1-3) Hydrocodone Bitart/Acetaminophen ([place] 7.5/325) 1 tab PO Q4H PRN PRN Reason: Moderate Pain (4-6) Last Admin: 11/20/18 20:20 Dose: 1 tab Amlodipine Besylate (Norvasc) 10 mg PO DAILY [facility] Last Admin: 11/23/18 08:40 Dose: 10 mg Artificial Tears (Tears Naturale) 2 drop EA EYE PRN PRN PRN Reason: Dry Eyes Atenolol (Tenormin) 50 mg PO BID [facility] Last Admin: 11/23/18 08:39 Dose: 50 mg Bacitracin Zinc (Bacitracin Zinc Ointment 30 Gm) 0 gm TOP Q12HR [facility] Last Admin: 11/23/18 08:42 Dose: 1 applic Bacitracin Zinc (Bacitracin Zinc Ointment 30 Gm) 0 gm TOP PRN PRN PRN Reason: Wound Care Bisacodyl (Dulcolax) 10 mg [place] DAILYPRN PRN PRN Reason: Constipation Clonidine (Catapres) 0.1 mg PO Q4H PRN PRN Reason: SBP GREATER THAN 160 Enoxaparin Sodium (Lovenox) 40 mg SC 0900 [facility] Last Admin: 11/23/18 08:40 Dose: Not Given Famotidine (Pepcid) 20 mg PO BID [facility] Last Admin: 11/23/18 08:39 Dose: 20 mg Fentanyl (Sublimaze) 25 mcg SLOW IVP Q4H PRN PRN Reason: Severe Pain (7-10) Last Admin: 11/21/18 08:35 Dose: 25 mcg Fentanyl (Duragesic) 25 mcg TD Q3D [facility] Last Admin: 11/21/18 12:40 Dose: 25 mcg Fentanyl (Sublimaze) 50 mcg SLOW IVP Q24H PRN PRN Reason: Wound Care Furosemide (Lasix) 40 mg SLOW IVP NOW [facility] Stop: 11/23/18 13:00 Guaifenesin (Robitussin Sf) 200 mg PO Q4H PRN PRN Reason: Cough Guaifenesin/Dextromethorphan (Robitussin Dm) 15 ml PO Q4H PRN PRN Reason: Cough Hydralazine HCl (Apresoline) 10 mg SLOW IVP Q4H PRN PRN Reason: Hypertension Last Admin: 11/22/18 00:54 Dose: 10 mg Piperacillin Sod/Tazobactam (Sod 4.5 gm/ Sodium Chloride) 100 mls @ 200 mls/hr IVPB Q8HR [facility] Last Admin: 11/23/18 04:56 Dose: 100 mls Vancomycin HCl 1.5 gm/ Sodium (Chloride) 300 mls @ 200 mls/hr IVPB 0100,1300 [facility] Last Admin: 11/23/18 00:48 Dose: 300 mls Lidocaine (Lidoderm 5% Patch) 1 patch TD DAILY [facility] Last Admin: 11/23/18 08:41 Dose: Not Given Loperamide HCl (Imodium) 2 mg PO PRN PRN PRN Reason: Diarrhea/Loose Stools Loratadine (Claritin) 10 mg PO DAILYPRN PRN PRN Reason: Sinus Symptoms Miscellaneous Medication (Pharmacy To Dose) 0 each IVPB .DAILY PRN PRN Reason: LABS Miscellaneous Medication (Lidocaine Patch Removal) 0 each TOP 2100 [facility] Last Admin: 11/22/18 20:55 Dose: Not Given Ondansetron HCl (Zofran) 4 mg IVP Q6H PRN PRN Reason: Nausea/Vomiting Ondansetron HCl (Zofran Odt) 4 mg PO Q6H PRN PRN Reason: Nausea/Vomiting Polyethylene Glycol (Miralax) 17 gm PO DAILY [facility] Last Admin: 11/23/18 08:40 Dose: Not Given Pregabalin (Lyrica) 75 mg PO BID [facility] Last Admin: 11/23/18 08:38 Dose: 75 mg Senna/Docusate Sodium (Senokot S) 2 tab PO BID [facility] Last Admin: 11/23/18 08:39 Dose: 2 tab Sodium Chloride ([place] Nasal [place] 0.65%) 0 ml EA NARE QIDPRN PRN PRN Reason: Nasal Congestion Throat Lozenges (Cepastat Lozenges) 1 tiffanie PO Q2H PRN PRN Reason: Sore Throat Tramadol HCl (Ultram) 50 mg PO Q6H PRN PRN Reason: Pain Zolpidem Tartrate (Ambien) 5 mg PO HSPRN PRN PRN Reason: Insomnia Last Admin: 11/22/18 22:57 Dose: 5 mg
[2018-11-23] MEDS ORDERED: traMADol HCl 50 MG TAB PO PRN (19:44)
[2018-11-23] MEDS: Lidocaine Patch Removal 1 EACH TOP SCH (20:04)
[2018-11-23] MEDS: Diazepam 5 MG TAB PO PRN (20:52)
[2018-11-24 00:35] LABS: Vancomycin, Trough 22.6 ug/mL
[2018-11-24] MEDS: Vancomycin HCl 1 GM in Premix Bag 1 BAG IVPB SCH ×2 (01:10→13:38)
[2018-11-24] MEDS: HYDROcodone/Acetaminophen 10/325 mg Tablet PO PRN ×5 (03:25→20:17)
[2018-11-24] MEDS: Piperacillin/Tazobactam 4.5 GM in Sodium Chloride 0.9% 100 ML IVPB SCH ×3 (05:57→23:35)
[2018-11-24] MEDS ORDERED: Atenolol 50 MG TAB PO SCH (06:45)
[2018-11-24] MEDS: hydrALAZINE 20 MG/ML VIAL SLOW IVP PRN (06:49)
[2018-11-24] MEDS: Pregabalin 75 MG CAP PO SCH ×2 (08:26→20:18)
[2018-11-24] MEDS: Senokot S 8.6-50 MG TAB PO SCH ×2 (08:26→20:19)
[2018-11-24] MEDS: Amlodipine 10 MG TAB PO SCH (08:26)
[2018-11-24] MEDS: Famotidine 20 MG TAB PO SCH ×2 (08:27→20:19)
[2018-11-24] MEDS: Enoxaparin Sodium 40 MG/0.4 ML SYRINGE SC SCH (08:27)
[2018-11-24] MEDS: Bacitracin Zinc Ointment 30 gm TUBE TOP SCH ×2 (08:27→20:20)
[2018-11-24] MEDS: Polyethylene Glycol 3350 17 GM Packet PO SCH (08:28)
[2018-11-24] MEDS: Lidocaine 5% Patch TD SCH (08:28)
[2018-11-24] MEDS: Diazepam 5 MG TAB PO PRN ×2 (08:32→20:18)
[2018-11-24] MEDS: fentaNYL 50 mcg/hour Patch TD SCH (10:01)
[2018-11-24] MEDS ORDERED: Furosemide 40 MG/4 ML VIAL SLOW IVP SCH (11:45)
--- NOTE | 2018-11-24 12:02 | PDOC.PN ---
- Subjective Encounter Start Date: 11/24/18 Encounter Start Time: 09:45 pt continue to complaint about stump pain, no fever, current pain meds not working - Objective Resuscitation Status - Order Detail: 11/20/18 11:41 Resuscitation Status Routine Resuscitation Status: FULL: Full Resuscitation MAR Reviewed: Yes Vital Signs & Weight: Vital Signs (12 hours) Temp Pulse Resp BP BP Pulse Ox 11/24/18 08:26 65 11/24/18 08:00 96 11/24/18 07:40 98.1 F 65 22 H 182/76 H 96 11/24/18 06:49 68 194/81 H Weight Admit Weight 246 lb 6 oz Weight 246 lb 6 oz I&O: 11/23/18 11/24/18 11/25/18 06:59 06:59 06:59 Intake Total 2830 2450 240 Output Total 1025 1450 Balance 1805 1000 240 Result Diagrams: 11/21/18 04:35 11/21/18 04:35 Phys Exam - Physical Examination Constitutional: NAD HEENT: PERRLA, moist MMs, sclera anicteric Neck: no JVD, supple Respiratory: no wheezing, no rales, no rhonchi Cardiovascular: RRR, no significant murmur, no rub Gastrointestinal: soft, non-tender, no distention, positive bowel sounds obesity+ right leg edema, left AKA stump with pain Neurological: non-focal, normal sensation Lymphatic: no nodes Psychiatric: normal affect, A&O x 3 Skin: no rash, normal turgor Dx/Plan (1) Amputation stump infection Code(s): T87.40 - INFECTION OF AMPUTATION STUMP, UNSPECIFIED EXTREMITY Status : Acute (2) Above knee amputation of left lower extremity Code(s): Z89.612 - ACQUIRED ABSENCE OF LEFT LEG ABOVE KNEE Status: Chronic Comment: with stump pain (3) CAD (coronary artery disease) Code(s): I25.10 - ATHSCL HEART DISEASE OF [place] CORONARY ARTERY W/O ANG PCTRS Status: Chronic Qualifiers: (4) CKD (chronic kidney disease) stage 3, GFR 30-59 ml/min Status: Chronic (5) COPD (chronic obstructive pulmonary disease) Status: Chronic Qualifiers: (6) Chronic prescription opiate use Code(s): Z79.891 - TRIBAL JUDGE (CURRENT) USE OF OPIATE ANALGESIC Status: Chronic (7) Dyslipidemia Code(s): E78.5 - HYPERLIPIDEMIA, UNSPECIFIED Status: Chronic (8) GERD (gastroesophageal reflux disease) Code(s): K21.9 - GASTRO-ESOPHAGEAL REFLUX DISEASE WITHOUT ESOPHAGITIS Status: Chronic Qualifiers: (9) HTN (hypertension) Code(s): I10 - ESSENTIAL (PRIMARY) HYPERTENSION Status: Chronic Qualifiers: (10) Macrocytic anemia Code(s): D53.9 - NUTRITIONAL ANEMIA, UNSPECIFIED Status: Chronic (11) Obesity (BMI 30-39.9) Code(s): E66.9 - OBESITY, UNSPECIFIED Status: Chronic (12) PVD (peripheral vascular disease) Code(s): I73.9 - PERIPHERAL VASCULAR DISEASE, UNSPECIFIED Status: Chronic - Plan cont current plan of care, continue antibiotics * currently on empiric antibiotics * will increase fentanyl patch 50 mcg q 3 days * will ask CV surgery if any surgical procedure planned or not * he will need chronic pain management after discharge * medication reviewed as below * symptomatic treatment * continue IV lasix for leg edema. Review of Systems - Review of Systems Eyes: negative: Pain, Vision Change, Conjunctivae Inflammation, Eyelid Inflammation, Redness, Other ENT: negative: Ear Pain, Ear Discharge, Nose Pain, Nose Discharge, Nose Congestion, Mouth Pain, Mouth Swelling, Throat Pain, Throat Swelling, Other Respiratory: negative: Cough, Dry, Shortness of Breath, Hemoptysis, SOB with Excertion, Pleuritic Pain, Sputum, Wheezing Cardiovascular: edema. negative: chest pain, palpitations, orthopnea, paroxysmal nocturnal dyspnea, light headedness, other Gastrointestinal: negative: Nausea, Vomiting, Abdominal Pain, Diarrhea, Constipation, Melena, Hematochezia, Other Genitourinary: negative: Dysuria, Frequency, Incontinence, Hematuria, Retention , Other Musculoskeletal: Leg Pain. negative: Neck Pain, Shoulder Pain, Arm Pain, Back Pain, Hand Pain, Foot Pain, Other - Medications/Allergies Allergies/Adverse Reactions: Allergies Allergy/AdvReac Type Severity Reaction Status Date / Time morphine Allergy Rash Verified 06/19/16 18:09 Medications: Current Medications Acetaminophen (Tylenol) 650 mg PO Q4H PRN PRN Reason: Headache/Fever Last Admin: 11/23/18 11:01 Dose: 650 mg Hydrocodone Bitart/Acetaminophen ([place] 10/325) 1 tab PO Q4H PRN PRN Reason: Severe Pain (7-10) Last Admin: 11/24/18 08:32 Dose: 1 tab Hydrocodone Bitart/Acetaminophen ([place] 5/325) 1 tab PO Q4H PRN PRN Reason: Mild Pain (1-3) Hydrocodone Bitart/Acetaminophen ([place] 7.5/325) 1 tab PO Q4H PRN PRN Reason: Moderate Pain (4-6) Last Admin: 11/20/18 20:20 Dose: 1 tab Amlodipine Besylate (Norvasc) 10 mg PO DAILY [facility] Last Admin: 11/24/18 08:26 Dose: 10 mg Artificial Tears (Tears Naturale) 2 drop EA EYE PRN PRN PRN Reason: Dry Eyes Atenolol (Tenormin) 50 mg PO 0600,1800 [facility] Bacitracin Zinc (Bacitracin Zinc Ointment 30 Gm) 0 gm TOP Q12HR [facility] Last Admin: 11/24/18 08:27 Dose: 1 applic Bacitracin Zinc (Bacitracin Zinc Ointment 30 Gm) 0 gm TOP PRN PRN PRN Reason: Wound Care Bisacodyl (Dulcolax) 10 mg [place] DAILYPRN PRN PRN Reason: Constipation Clonidine (Catapres) 0.1 mg PO Q4H PRN PRN Reason: SBP GREATER THAN 160 Diazepam (Valium) 10 mg PO BIDPRN PRN PRN Reason: Anxiety Last Admin: 11/24/18 08:32 Dose: 10 mg Enoxaparin Sodium (Lovenox) 40 mg SC 0900 [facility] Last Admin: 11/24/18 08:27 Dose: 40 mg Famotidine (Pepcid) 20 mg PO BID [facility] Last Admin: 11/24/18 08:27 Dose: 20 mg Fentanyl (Sublimaze) 25 mcg SLOW IVP Q4H PRN PRN Reason: Severe Pain (7-10) Last Admin: 11/21/18 08:35 Dose: 25 mcg Fentanyl (Sublimaze) 50 mcg SLOW IVP Q24H PRN PRN Reason: Wound Care Fentanyl (Duragesic) 50 mcg TD Q3D [facility] Last Admin: 11/24/18 10:01 Dose: 50 mcg Furosemide (Lasix) 40 mg SLOW IVP 0600,1400 [facility] Furosemide (Lasix) 40 mg SLOW IVP ONE [facility] Stop: 11/24/18 13:00 Guaifenesin (Robitussin Sf) 200 mg PO Q4H PRN PRN Reason: Cough Guaifenesin/Dextromethorphan (Robitussin Dm) 15 ml PO Q4H PRN PRN Reason: Cough Hydralazine HCl (Apresoline) 10 mg SLOW IVP Q4H PRN PRN Reason: Hypertension Last Admin: 11/24/18 06:49 Dose: 10 mg Piperacillin Sod/Tazobactam (Sod 4.5 gm/ Sodium Chloride) 100 mls @ 200 mls/hr IVPB Q8HR [facility] Last Admin: 11/24/18 05:57 Dose: 100 mls Vancomycin HCl 1 gm/ Device 200 mls @ 200 mls/hr IVPB 0100,1300 [facility] Last Admin: 11/24/18 01:10 Dose: 200 mls Lidocaine (Lidoderm 5% Patch) 1 patch TD DAILY [facility] Last Admin: 11/24/18 08:28 Dose: 1 patch Loperamide HCl (Imodium) 2 mg PO PRN PRN PRN Reason: Diarrhea/Loose Stools Loratadine (Claritin) 10 mg PO DAILYPRN PRN PRN Reason: Sinus Symptoms Miscellaneous Medication (Pharmacy To Dose) 0 each IVPB .DAILY PRN PRN Reason: LABS Miscellaneous Medication (Lidocaine Patch Removal) 0 each TOP 2100 [facility] Last Admin: 11/23/18 20:04 Dose: Not Given Ondansetron HCl (Zofran) 4 mg IVP Q6H PRN PRN Reason: Nausea/Vomiting Ondansetron HCl (Zofran Odt) 4 mg PO Q6H PRN PRN Reason: Nausea/Vomiting Polyethylene Glycol (Miralax) 17 gm PO DAILY [facility] Last Admin: 11/24/18 08:28 Dose: 17 gm Pregabalin (Lyrica) 75 mg PO BID [facility] Last Admin: 11/24/18 08:26 Dose: 75 mg Senna/Docusate Sodium (Senokot S) 2 tab PO BID [facility] Last Admin: 11/24/18 08:26 Dose: 2 tab Sodium Chloride ([place] Nasal [place] 0.65%) 0 ml EA NARE QIDPRN PRN PRN Reason: Nasal Congestion Sodium Chloride (Flush - Normal Saline) 10 ml IVF PRN PRN PRN Reason: Saline Flush Throat Lozenges (Cepastat Lozenges) 1 tiffanie PO Q2H PRN PRN Reason: Sore Throat Tramadol HCl (Ultram) 50 mg PO Q6H PRN PRN Reason: Pain Last Admin: 11/23/18 20:02 Dose: 50 mg Zolpidem Tartrate (Ambien) 5 mg PO HSPRN PRN PRN Reason: Insomnia Last Admin: 11/22/18 22:57 Dose: 5 mg
[2018-11-24] MEDS: Furosemide 40 MG/4 ML VIAL SLOW IVP SCH (13:50)
[2018-11-24] MEDS: Atenolol 50 MG TAB PO SCH (17:26)
[2018-11-24] MEDS: Lidocaine Patch Removal 1 EACH TOP SCH (20:19)
[2018-11-25] MEDS: Vancomycin HCl 1 GM in Premix Bag 1 BAG IVPB SCH ×2 (00:37→12:28)
[2018-11-25] MEDS: Furosemide 40 MG/4 ML VIAL SLOW IVP SCH ×2 (06:05→13:50)
[2018-11-25] MEDS: Piperacillin/Tazobactam 4.5 GM in Sodium Chloride 0.9% 100 ML IVPB SCH ×3 (06:06→21:17)
[2018-11-25] MEDS: Atenolol 50 MG TAB PO SCH ×2 (06:13→17:24)
[2018-11-25] MEDS: Senokot S 8.6-50 MG TAB PO SCH ×2 (08:10→21:18)
[2018-11-25] MEDS: Amlodipine 10 MG TAB PO SCH (08:10)
[2018-11-25] MEDS: Famotidine 20 MG TAB PO SCH ×2 (08:11→21:15)
[2018-11-25] MEDS: Pregabalin 75 MG CAP PO SCH ×2 (08:11→21:14)
[2018-11-25] MEDS: Enoxaparin Sodium 40 MG/0.4 ML SYRINGE SC SCH (08:12)
[2018-11-25] MEDS: Polyethylene Glycol 3350 17 GM Packet PO SCH (08:12)
[2018-11-25] MEDS: Bacitracin Zinc Ointment 30 gm TUBE TOP SCH ×2 (08:12→21:16)
[2018-11-25] MEDS: Lidocaine 5% Patch TD SCH (08:18)
--- NOTE | 2018-11-25 10:42 | PDOC.PN ---
- Subjective Encounter Start Date: 11/25/18 Encounter Start Time: 10:10 Patient seen and examined. No new complaints. No overnight events he has chronic pain over amputation stump site - Objective Resuscitation Status - Order Detail: 11/20/18 11:41 Resuscitation Status Routine Resuscitation Status: FULL: Full Resuscitation MAR Reviewed: Yes Vital Signs & Weight: Vital Signs (12 hours) Temp Pulse Resp BP BP Pulse Ox 11/25/18 08:10 110 H 11/25/18 08:00 92 L 11/25/18 07:51 98.5 F 110 H 22 H 181/93 H 92 L 11/25/18 06:12 101 H 18 170/92 H Weight Admit Weight 246 lb 6 oz Weight 246 lb 6 oz I&O: 11/24/18 11/25/18 11/26/18 06:59 06:59 06:59 Intake Total 2450 1620 240 Output Total 1450 Balance 1000 1620 240 Result Diagrams: 11/21/18 04:35 11/21/18 04:35 Phys Exam - Physical Examination Constitutional: NAD HEENT: PERRLA, moist MMs, sclera anicteric Neck: no JVD, supple Respiratory: no wheezing, no rales, no rhonchi Cardiovascular: RRR, no significant murmur, no rub Gastrointestinal: soft, non-tender, no distention, positive bowel sounds obesity+ right leg edema reduced, left AKA Neurological: non-focal, normal sensation, moves all 4 limbs Lymphatic: no nodes Psychiatric: normal affect, A&O x 3 Skin: no rash, normal turgor Dx/Plan (1) Amputation stump infection Code(s): T87.40 - INFECTION OF AMPUTATION STUMP, UNSPECIFIED EXTREMITY Status : Acute (2) Above knee amputation of left lower extremity Code(s): Z89.612 - ACQUIRED ABSENCE OF LEFT LEG ABOVE KNEE Status: Chronic Comment: with stump pain (3) CAD (coronary artery disease) Code(s): I25.10 - ATHSCL HEART DISEASE OF [place] CORONARY ARTERY W/O ANG PCTRS Status: Chronic Qualifiers: (4) CKD (chronic kidney disease) stage 3, GFR 30-59 ml/min Status: Chronic (5) COPD (chronic obstructive pulmonary disease) Status: Chronic Qualifiers: (6) Chronic prescription opiate use Code(s): Z79.891 - CORRECTION (CURRENT) USE OF OPIATE ANALGESIC Status: Chronic (7) Dyslipidemia Code(s): E78.5 - HYPERLIPIDEMIA, UNSPECIFIED Status: Chronic (8) GERD (gastroesophageal reflux disease) Code(s): K21.9 - GASTRO-ESOPHAGEAL REFLUX DISEASE WITHOUT ESOPHAGITIS Status: Chronic Qualifiers: (9) HTN (hypertension) Code(s): I10 - ESSENTIAL (PRIMARY) HYPERTENSION Status: Chronic Qualifiers: (10) Macrocytic anemia Code(s): D53.9 - NUTRITIONAL ANEMIA, UNSPECIFIED Status: Chronic (11) Obesity (BMI 30-39.9) Code(s): E66.9 - OBESITY, UNSPECIFIED Status: Chronic (12) PVD (peripheral vascular disease) Code(s): I73.9 - PERIPHERAL VASCULAR DISEASE, UNSPECIFIED Status: Chronic - Plan cont current plan of care, continue antibiotics * I spoke with Dr Villarreal CV surgery about his plan, he has no plan for surgery for this pt, only option is hip dearticulation but its too aggressive for him * he needs chronic pain management * continue empiric antibiotics * continue lasix today * possible discharge tomorrow * pain control * counselled to avoid smoking. Review of Systems - Review of Systems ENT: negative: Ear Pain, Ear Discharge, Nose Pain, Nose Discharge, Nose Congestion, Mouth Pain, Mouth Swelling, Throat Pain, Throat Swelling, Other Respiratory: negative: Cough, Dry, Shortness of Breath, Hemoptysis, SOB with Excertion, Pleuritic Pain, Sputum, Wheezing Cardiovascular: negative: chest pain, palpitations, orthopnea, paroxysmal nocturnal dyspnea, edema, light headedness, other Gastrointestinal: negative: Nausea, Vomiting, Abdominal Pain, Diarrhea, Constipation, Melena, Hematochezia, Other Genitourinary: negative: Dysuria, Frequency, Incontinence, Hematuria, Retention , Other Musculoskeletal: Leg Pain. negative: Neck Pain, Shoulder Pain, Arm Pain, Back Pain, Hand Pain, Foot Pain, Other Skin: negative: Rash, Lesions, Tyrel, Bruising, Other - Medications/Allergies Allergies/Adverse Reactions: Allergies Allergy/AdvReac Type Severity Reaction Status Date / Time morphine Allergy Rash Verified 06/19/16 18:09 Medications: Current Medications Acetaminophen (Tylenol) 650 mg PO Q4H PRN PRN Reason: Headache/Fever Last Admin: 11/23/18 11:01 Dose: 650 mg Hydrocodone Bitart/Acetaminophen ([place] 10/325) 1 tab PO Q4H PRN PRN Reason: Severe Pain (7-10) Last Admin: 11/24/18 20:17 Dose: 1 tab Hydrocodone Bitart/Acetaminophen ([place] 5/325) 1 tab PO Q4H PRN PRN Reason: Mild Pain (1-3) Hydrocodone Bitart/Acetaminophen ([place] 7.5/325) 1 tab PO Q4H PRN PRN Reason: Moderate Pain (4-6) Last Admin: 11/20/18 20:20 Dose: 1 tab Amlodipine Besylate (Norvasc) 10 mg PO DAILY [facility] Last Admin: 11/25/18 08:10 Dose: 10 mg Artificial Tears (Tears Naturale) 2 drop EA EYE PRN PRN PRN Reason: Dry Eyes Atenolol (Tenormin) 50 mg PO 0600,1800 [facility] Last Admin: 11/25/18 06:13 Dose: 50 mg Bacitracin Zinc (Bacitracin Zinc Ointment 30 Gm) 0 gm TOP Q12HR [facility] Last Admin: 11/25/18 08:12 Dose: 1 applic Bacitracin Zinc (Bacitracin Zinc Ointment 30 Gm) 0 gm TOP PRN PRN PRN Reason: Wound Care Bisacodyl (Dulcolax) 10 mg [place] DAILYPRN PRN PRN Reason: Constipation Clonidine (Catapres) 0.1 mg PO Q4H PRN PRN Reason: SBP GREATER THAN 160 Diazepam (Valium) 10 mg PO BIDPRN PRN PRN Reason: Anxiety Last Admin: 11/24/18 20:18 Dose: 10 mg Enoxaparin Sodium (Lovenox) 40 mg SC 0900 [facility] Last Admin: 11/25/18 08:12 Dose: Not Given Famotidine (Pepcid) 20 mg PO BID [facility] Last Admin: 11/25/18 08:11 Dose: 20 mg Fentanyl (Sublimaze) 25 mcg SLOW IVP Q4H PRN PRN Reason: Severe Pain (7-10) Last Admin: 11/21/18 08:35 Dose: 25 mcg Fentanyl (Sublimaze) 50 mcg SLOW IVP Q24H PRN PRN Reason: Wound Care Fentanyl (Duragesic) 50 mcg TD Q3D [facility] Last Admin: 11/24/18 10:01 Dose: 50 mcg Furosemide (Lasix) 40 mg SLOW IVP 0600,1400 [facility] Last Admin: 11/25/18 06:05 Dose: 40 mg Guaifenesin (Robitussin Sf) 200 mg PO Q4H PRN PRN Reason: Cough Guaifenesin/Dextromethorphan (Robitussin Dm) 15 ml PO Q4H PRN PRN Reason: Cough Hydralazine HCl (Apresoline) 10 mg SLOW IVP Q4H PRN PRN Reason: Hypertension Last Admin: 11/24/18 06:49 Dose: 10 mg Piperacillin Sod/Tazobactam (Sod 4.5 gm/ Sodium Chloride) 100 mls @ 200 mls/hr IVPB Q8HR [facility] Last Admin: 11/25/18 06:06 Dose: 100 mls Vancomycin HCl 1 gm/ Device 200 mls @ 200 mls/hr IVPB 0100,1300 [facility] Last Admin: 11/25/18 00:37 Dose: 200 mls Lidocaine (Lidoderm 5% Patch) 1 patch TD DAILY [facility] Last Admin: 11/25/18 08:18 Dose: Not Given Loperamide HCl (Imodium) 2 mg PO PRN PRN PRN Reason: Diarrhea/Loose Stools Loratadine (Claritin) 10 mg PO DAILYPRN PRN PRN Reason: Sinus Symptoms Miscellaneous Medication (Pharmacy To Dose) 0 each IVPB .DAILY PRN PRN Reason: LABS Miscellaneous Medication (Lidocaine Patch Removal) 0 each TOP 2100 [facility] Last Admin: 11/24/18 20:19 Dose: Not Given Ondansetron HCl (Zofran) 4 mg IVP Q6H PRN PRN Reason: Nausea/Vomiting Ondansetron HCl (Zofran Odt) 4 mg PO Q6H PRN PRN Reason: Nausea/Vomiting Polyethylene Glycol (Miralax) 17 gm PO DAILY [facility] Last Admin: 11/25/18 08:12 Dose: 17 gm Pregabalin (Lyrica) 75 mg PO BID [facility] Last Admin: 11/25/18 08:11 Dose: 75 mg Senna/Docusate Sodium (Senokot S) 2 tab PO BID [facility] Last Admin: 11/25/18 08:10 Dose: 2 tab Sodium Chloride ([place] Nasal [place] 0.65%) 0 ml EA NARE QIDPRN PRN PRN Reason: Nasal Congestion Sodium Chloride (Flush - Normal Saline) 10 ml IVF PRN PRN PRN Reason: Saline Flush Throat Lozenges (Cepastat Lozenges) 1 tiffanie PO Q2H PRN PRN Reason: Sore Throat Tramadol HCl (Ultram) 50 mg PO Q6H PRN PRN Reason: Pain Last Admin: 11/23/18 20:02 Dose: 50 mg Zolpidem Tartrate (Ambien) 5 mg PO HSPRN PRN PRN Reason: Insomnia Last Admin: 11/22/18 22:57 Dose: 5 mg
[2018-11-25] MEDS: HYDROcodone/Acetaminophen 10/325 mg Tablet PO PRN ×2 (13:55→17:29)
--- NOTE | 2018-11-25 14:31 | CON ---
DATE OF CONSULTATION: 11/20/2018 HISTORY OF PRESENT ILLNESS: Mr. De Leon is a 58-year-old gentleman, who has a long peripheral vascular history. He continues to smoke. He underwent aortobifemoral bypass in [place]. At the time of his discharge, he had an ischemic left leg. He left [place] and came to [place] at that time. He underwent a left above-knee amputation in a guillotine fashion. This was allowed to heal by secondary intention with a wound VAC. He is completely healed, although he has bilateral lower extremity edema at this point and has cracked the skin open of his stump. The patient has continuous chronic pain in his stump. When he originally presented with his ischemic leg here, the left limb of the aortobifemoral bypass had thrombosed. He underwent a fem-fem bypass at that point and amputation. PAST MEDICAL HISTORY: 1. Peripheral vascular disease. 2. Tobacco abuse. 3. Hypertension. PAST SURGICAL HISTORY: 1. Aortobifemoral bypass. 2. Fem-fem bypass. 3. Above-knee amputation. CURRENT MEDICATIONS: Noted. ALLERGIES: NONE. REVIEW OF SYSTEMS: Otherwise negative. PHYSICAL EXAMINATION: GENERAL: This is a moderately obese gentleman, sitting in a wheelchair. VITAL SIGNS: Temperature is 97.8, pulse is 84, blood pressure is 171/83. LUNGS: Clear. HEART: Rhythm is regular. ABDOMEN: Obese and nontender. EXTREMITIES: I have inspected his left stump and this shows a cracked skin across the middle of the stump. It is clean. It is cool. There is no significant drainage currently. ASSESSMENT AND PLAN: Chronic pain issues in his stump. He is being seen by the pain management group. The only revision you could do of his high above-knee amputation would be a hip disarticulation, which would be severely limiting in his situation as he would not be able to sit, he would tip over at that point chronically. I would recommend local therapy and pain management. Job ID: [id number]
[2018-11-25] MEDS: Diazepam 5 MG TAB PO PRN (21:14)
[2018-11-25] MEDS: HYDROcodone/Acetaminophen 7.5/325 mg Tablet PO PRN (21:15)
[2018-11-25] MEDS: Lidocaine Patch Removal 1 EACH TOP SCH (21:16)
[2018-11-26] MEDS: Vancomycin HCl 1 GM in Premix Bag 1 BAG IVPB SCH (01:31)
[2018-11-26] MEDS: Zolpidem Tartrate 5 MG TAB PO PRN (01:31)
[2018-11-26] MEDS: HYDROcodone/Acetaminophen 10/325 mg Tablet PO PRN ×5 (01:31→20:16)
[2018-11-26] MEDS: Atenolol 50 MG TAB PO SCH ×2 (07:09→16:51)
[2018-11-26] MEDS: Piperacillin/Tazobactam 4.5 GM in Sodium Chloride 0.9% 100 ML IVPB SCH (07:12)
[2018-11-26] MEDS: Furosemide 40 MG/4 ML VIAL SLOW IVP SCH ×2 (07:12→14:30)
[2018-11-26] MEDS: Senokot S 8.6-50 MG TAB PO SCH ×2 (10:10→20:15)
[2018-11-26] MEDS: Amlodipine 10 MG TAB PO SCH (10:11)
[2018-11-26] MEDS: Famotidine 20 MG TAB PO SCH ×2 (10:11→20:16)
[2018-11-26] MEDS: Bacitracin Zinc Ointment 30 gm TUBE TOP SCH ×2 (10:11→20:17)
[2018-11-26] MEDS: Enoxaparin Sodium 40 MG/0.4 ML SYRINGE SC SCH (10:12)
[2018-11-26] MEDS: Cephalexin 250 MG CAP PO SCH ×3 (10:12→20:16)
[2018-11-26] MEDS: Lidocaine 5% Patch TD SCH (10:12)
[2018-11-26] MEDS: Pregabalin 75 MG CAP PO SCH ×2 (10:12→20:15)
[2018-11-26] MEDS: Polyethylene Glycol 3350 17 GM Packet PO SCH (10:13)
--- NOTE | 2018-11-26 11:44 | PDOC.PN ---
- Subjective Encounter Start Date: 11/26/18 Encounter Start Time: 10:15 pt's pain level at amputation stump site has not changed and he has purulent drainage pt wants to discuss with ortho surgeon for opinion - Objective Resuscitation Status - Order Detail: 11/20/18 11:41 Resuscitation Status Routine Resuscitation Status: FULL: Full Resuscitation MAR Reviewed: Yes Vital Signs & Weight: Vital Signs (12 hours) Temp Pulse Resp BP BP Pulse Ox 11/26/18 10:11 61 155/72 H 11/26/18 07:46 97.9 F 61 20 155/72 H 94 L 11/26/18 07:09 63 Weight Admit Weight 246 lb 6 oz Weight 246 lb 6 oz I&O: 11/25/18 11/26/18 11/27/18 06:59 06:59 06:59 Intake Total 1620 720 Balance 1620 720 Result Diagrams: 11/21/18 04:35 11/21/18 04:35 Phys Exam - Physical Examination Constitutional: NAD HEENT: PERRLA, moist MMs, sclera anicteric Neck: no JVD, supple Respiratory: no wheezing, no rales, no rhonchi Cardiovascular: RRR, no significant murmur, no rub Gastrointestinal: soft, non-tender, no distention, positive bowel sounds obesity+ left AKA stump ulcer with drainage Neurological: non-focal, normal sensation Lymphatic: no nodes Psychiatric: normal affect, A&O x 3 Skin: no rash, normal turgor Dx/Plan (1) Amputation stump infection Code(s): T87.40 - INFECTION OF AMPUTATION STUMP, UNSPECIFIED EXTREMITY Status : Acute (2) Above knee amputation of left lower extremity Code(s): Z89.612 - ACQUIRED ABSENCE OF LEFT LEG ABOVE KNEE Status: Chronic Comment: with stump pain (3) CAD (coronary artery disease) Code(s): I25.10 - ATHSCL HEART DISEASE OF [place] CORONARY ARTERY W/O ANG PCTRS Status: Chronic Qualifiers: (4) CKD (chronic kidney disease) stage 3, GFR 30-59 ml/min Status: Chronic (5) COPD (chronic obstructive pulmonary disease) Status: Chronic Qualifiers: (6) Chronic prescription opiate use Code(s): Z79.891 - INTERMEDIATE (CURRENT) USE OF OPIATE ANALGESIC Status: Chronic (7) Dyslipidemia Code(s): E78.5 - HYPERLIPIDEMIA, UNSPECIFIED Status: Chronic (8) GERD (gastroesophageal reflux disease) Code(s): K21.9 - GASTRO-ESOPHAGEAL REFLUX DISEASE WITHOUT ESOPHAGITIS Status: Chronic Qualifiers: (9) HTN (hypertension) Code(s): I10 - ESSENTIAL (PRIMARY) HYPERTENSION Status: Chronic Qualifiers: (10) Macrocytic anemia Code(s): D53.9 - NUTRITIONAL ANEMIA, UNSPECIFIED Status: Chronic (11) Obesity (BMI 30-39.9) Code(s): E66.9 - OBESITY, UNSPECIFIED Status: Chronic (12) PVD (peripheral vascular disease) Code(s): I73.9 - PERIPHERAL VASCULAR DISEASE, UNSPECIFIED Status: Chronic (13) Tobacco abuse Code(s): Z72.0 - TOBACCO USE Status: Chronic - Plan cont current plan of care, continue antibiotics * currently on fentalny patch, norco, lyrica for pain control * will consult ortho for opinion regarding amputation site infection. * medication reviewed as below * symptomatic treatment * he is at risk for readmission Review of Systems - Review of Systems Eyes: negative: Pain, Vision Change, Conjunctivae Inflammation, Eyelid Inflammation, Redness, Other ENT: negative: Ear Pain, Ear Discharge, Nose Pain, Nose Discharge, Nose Congestion, Mouth Pain, Mouth Swelling, Throat Pain, Throat Swelling, Other Cardiovascular: negative: chest pain, palpitations, orthopnea, paroxysmal nocturnal dyspnea, edema, light headedness, other Gastrointestinal: negative: Nausea, Vomiting, Abdominal Pain, Diarrhea, Constipation, Melena, Hematochezia, Other Genitourinary: negative: Dysuria, Frequency, Incontinence, Hematuria, Retention , Other Musculoskeletal: Leg Pain. negative: Neck Pain, Shoulder Pain, Arm Pain, Back Pain, Hand Pain, Foot Pain, Other - Medications/Allergies Allergies/Adverse Reactions: Allergies Allergy/AdvReac Type Severity Reaction Status Date / Time morphine Allergy Rash Verified 06/19/16 18:09 Medications: Current Medications Acetaminophen (Tylenol) 650 mg PO Q4H PRN PRN Reason: Headache/Fever Last Admin: 11/23/18 11:01 Dose: 650 mg Hydrocodone Bitart/Acetaminophen ([place] 10/325) 1 tab PO Q4H PRN PRN Reason: Severe Pain (7-10) Last Admin: 11/26/18 07:09 Dose: 1 tab Hydrocodone Bitart/Acetaminophen ([place] 5/325) 1 tab PO Q4H PRN PRN Reason: Mild Pain (1-3) Hydrocodone Bitart/Acetaminophen ([place] 7.5/325) 1 tab PO Q4H PRN PRN Reason: Moderate Pain (4-6) Last Admin: 11/25/18 21:15 Dose: 1 tab Amlodipine Besylate (Norvasc) 10 mg PO DAILY [facility] Last Admin: 11/26/18 10:11 Dose: 10 mg Artificial Tears (Tears Naturale) 2 drop EA EYE PRN PRN PRN Reason: Dry Eyes Atenolol (Tenormin) 50 mg PO 0600,1800 [facility] Last Admin: 11/26/18 07:09 Dose: 50 mg Bacitracin Zinc (Bacitracin Zinc Ointment 30 Gm) 0 gm TOP Q12HR [facility] Last Admin: 11/26/18 10:11 Dose: 1 applic Bacitracin Zinc (Bacitracin Zinc Ointment 30 Gm) 0 gm TOP PRN PRN PRN Reason: Wound Care Bisacodyl (Dulcolax) 10 mg [place] DAILYPRN PRN PRN Reason: Constipation Cephalexin (Keflex) 500 mg PO TID [facility] Last Admin: 11/26/18 10:12 Dose: 500 mg Clonidine (Catapres) 0.1 mg PO Q4H PRN PRN Reason: SBP GREATER THAN 160 Diazepam (Valium) 10 mg PO BIDPRN PRN PRN Reason: Anxiety Last Admin: 11/25/18 21:14 Dose: 10 mg Enoxaparin Sodium (Lovenox) 40 mg SC 0900 [facility] Last Admin: 11/26/18 10:12 Dose: Not Given Famotidine (Pepcid) 20 mg PO BID [facility] Last Admin: 11/26/18 10:11 Dose: 20 mg Fentanyl (Sublimaze) 25 mcg SLOW IVP Q4H PRN PRN Reason: Severe Pain (7-10) Last Admin: 11/21/18 08:35 Dose: 25 mcg Fentanyl (Sublimaze) 50 mcg SLOW IVP Q24H PRN PRN Reason: Wound Care Fentanyl (Duragesic) 50 mcg TD Q3D [facility] Last Admin: 11/24/18 10:01 Dose: 50 mcg Furosemide (Lasix) 40 mg SLOW IVP 0600,1400 [facility] Last Admin: 11/26/18 07:12 Dose: 40 mg Guaifenesin (Robitussin Sf) 200 mg PO Q4H PRN PRN Reason: Cough Guaifenesin/Dextromethorphan (Robitussin Dm) 15 ml PO Q4H PRN PRN Reason: Cough Hydralazine HCl (Apresoline) 10 mg SLOW IVP Q4H PRN PRN Reason: Hypertension Last Admin: 11/24/18 06:49 Dose: 10 mg Lidocaine (Lidoderm 5% Patch) 1 patch TD DAILY [facility] Last Admin: 11/26/18 10:12 Dose: Not Given Loperamide HCl (Imodium) 2 mg PO PRN PRN PRN Reason: Diarrhea/Loose Stools Loratadine (Claritin) 10 mg PO DAILYPRN PRN PRN Reason: Sinus Symptoms Miscellaneous Medication (Pharmacy To Dose) 0 each IVPB .DAILY PRN PRN Reason: LABS Miscellaneous Medication (Lidocaine Patch Removal) 0 each TOP 2100 [facility] Last Admin: 11/25/18 21:16 Dose: Not Given Ondansetron HCl (Zofran) 4 mg IVP Q6H PRN PRN Reason: Nausea/Vomiting Ondansetron HCl (Zofran Odt) 4 mg PO Q6H PRN PRN Reason: Nausea/Vomiting Polyethylene Glycol (Miralax) 17 gm PO DAILY [facility] Last Admin: 11/26/18 10:13 Dose: 17 gm Pregabalin (Lyrica) 75 mg PO BID [facility] Last Admin: 11/26/18 10:12 Dose: 75 mg Senna/Docusate Sodium (Senokot S) 2 tab PO BID [facility] Last Admin: 11/26/18 10:10 Dose: 2 tab Sodium Chloride ([place] Nasal [place] 0.65%) 0 ml EA NARE QIDPRN PRN PRN Reason: Nasal Congestion Sodium Chloride (Flush - Normal Saline) 10 ml IVF PRN PRN PRN Reason: Saline Flush Throat Lozenges (Cepastat Lozenges) 1 tiffanie PO Q2H PRN PRN Reason: Sore Throat Tramadol HCl (Ultram) 50 mg PO Q6H PRN PRN Reason: Pain Last Admin: 11/23/18 20:02 Dose: 50 mg Zolpidem Tartrate (Ambien) 5 mg PO HSPRN PRN PRN Reason: Insomnia Last Admin: 11/26/18 01:31 Dose: 5 mg
[2018-11-26] MEDS ORDERED: Clopidogrel Bisulfate 75 MG TAB ONE (12:28)
[2018-11-26] MEDS: Fentanyl 100 MCG/2 ML VIAL SLOW IVP PRN (14:43)
[2018-11-26] MEDS: Lidocaine Patch Removal 1 EACH TOP SCH (20:17)
[2018-11-26] MEDS ORDERED: Zolpidem Tartrate 5 MG TAB ONE (23:04)
[2018-11-26] MEDS ORDERED: Fentanyl 100 MCG/2 ML VIAL ONE (23:06)
[2018-11-27] MEDS ORDERED: Furosemide 40 MG TAB ONE (06:02)
[2018-11-27] MEDS ORDERED: HYDROcodone/Acetaminophen 10/325 mg Tablet ONE (06:03)
[2018-11-27] MEDS ORDERED: Atenolol 25 MG TAB ONE (06:03)
[2018-11-27] MEDS ORDERED: Pregabalin 75 MG CAP ONE (07:56)
[2018-11-27] MEDS ORDERED: Polyethylene Glycol 3350 17 GM Packet ONE (07:56)
[2018-11-27] MEDS ORDERED: Famotidine 20 MG TAB ONE (07:57)
[2018-11-27] MEDS ORDERED: Amlodipine 10 MG TAB ONE (07:57)
[2018-11-27] MEDS ORDERED: Fentanyl 100 MCG/2 ML VIAL ONE (07:58)
[2018-11-27] MEDS ORDERED: Senokot S 8.6-50 MG TAB ONE (07:58)
[2018-11-27] MEDS: Polyethylene Glycol 3350 17 GM Packet PO SCH (08:20)
[2018-11-27] MEDS: Senokot S 8.6-50 MG TAB PO SCH ×2 (08:20→20:15)
[2018-11-27] MEDS: Cephalexin 250 MG CAP PO SCH ×3 (08:20→20:17)
[2018-11-27] MEDS: Pregabalin 75 MG CAP PO SCH ×2 (08:20→20:15)
[2018-11-27] MEDS: Bacitracin Zinc Ointment 30 gm TUBE TOP SCH ×3 (08:20→20:18)
[2018-11-27] MEDS: Famotidine 20 MG TAB PO SCH ×2 (08:20→20:15)
[2018-11-27] MEDS: Atenolol 50 MG TAB PO SCH ×2 (10:51→18:21)
[2018-11-27] MEDS: Furosemide 40 MG/4 ML VIAL SLOW IVP SCH ×3 (10:52→15:43)
[2018-11-27] MEDS: Amlodipine 10 MG TAB PO SCH (10:53)
[2018-11-27] MEDS: Enoxaparin Sodium 40 MG/0.4 ML SYRINGE SC SCH (10:57)
[2018-11-27] MEDS: Lidocaine 5% Patch TD SCH (10:58)
[2018-11-27] MEDS: fentaNYL 50 mcg/hour Patch TD SCH (12:28)
--- NOTE | 2018-11-27 13:41 | PDOC.PN ---
- Subjective Encounter Start Date: 11/27/18 Encounter Start Time: 10:15 Patient seen and examined. No new complaints. No overnight events - Objective Resuscitation Status - Order Detail: 11/20/18 11:41 Resuscitation Status Routine Resuscitation Status: FULL: Full Resuscitation MAR Reviewed: Yes Vital Signs & Weight: Vital Signs (12 hours) Temp Pulse Resp BP BP Pulse Ox 11/27/18 10:53 66 183/63 H 11/27/18 10:51 66 11/27/18 08:20 98.2 F 66 18 185/63 H 92 L Weight Admit Weight 246 lb 6 oz Weight 246 lb 6 oz I&O: 11/26/18 11/27/18 11/28/18 06:59 06:59 06:59 Intake Total 720 720 Output Total 1200 Balance 720 -480 Result Diagrams: 11/21/18 04:35 11/21/18 04:35 Phys Exam - Physical Examination Constitutional: NAD HEENT: PERRLA, moist MMs, sclera anicteric Neck: no JVD, supple Respiratory: no wheezing, no rales, no rhonchi Cardiovascular: RRR, no significant murmur, no rub Gastrointestinal: soft, non-tender, no distention, positive bowel sounds obesity+ left aka with dressing over stump Neurological: non-focal Dx/Plan (1) Amputation stump infection Code(s): T87.40 - INFECTION OF AMPUTATION STUMP, UNSPECIFIED EXTREMITY Status : Acute (2) Above knee amputation of left lower extremity Code(s): Z89.612 - ACQUIRED ABSENCE OF LEFT LEG ABOVE KNEE Status: Chronic Comment: with stump pain (3) CAD (coronary artery disease) Code(s): I25.10 - ATHSCL HEART DISEASE OF [place] CORONARY ARTERY W/O ANG PCTRS Status: Chronic Qualifiers: (4) CKD (chronic kidney disease) stage 3, GFR 30-59 ml/min Status: Chronic (5) COPD (chronic obstructive pulmonary disease) Status: Chronic Qualifiers: (6) Chronic prescription opiate use Code(s): Z79.891 - HALF-WAY (CURRENT) USE OF OPIATE ANALGESIC Status: Chronic (7) Dyslipidemia Code(s): E78.5 - HYPERLIPIDEMIA, UNSPECIFIED Status: Chronic (8) GERD (gastroesophageal reflux disease) Code(s): K21.9 - GASTRO-ESOPHAGEAL REFLUX DISEASE WITHOUT ESOPHAGITIS Status: Chronic Qualifiers: (9) HTN (hypertension) Code(s): I10 - ESSENTIAL (PRIMARY) HYPERTENSION Status: Chronic Qualifiers: (10) Macrocytic anemia Code(s): D53.9 - NUTRITIONAL ANEMIA, UNSPECIFIED Status: Chronic (11) Obesity (BMI 30-39.9) Code(s): E66.9 - OBESITY, UNSPECIFIED Status: Chronic (12) PVD (peripheral vascular disease) Code(s): I73.9 - PERIPHERAL VASCULAR DISEASE, UNSPECIFIED Status: Chronic (13) Tobacco abuse Code(s): Z72.0 - TOBACCO USE Status: Chronic - Plan cont current plan of care, continue antibiotics * pain control * add fentanyl prn * ortho to give second opinion per pt request * medication reviewed as below * symptomatic treatment. Review of Systems - Review of Systems ENT: negative: Ear Pain, Ear Discharge, Nose Pain, Nose Discharge, Nose Congestion, Mouth Pain, Mouth Swelling, Throat Pain, Throat Swelling, Other Respiratory: negative: Cough, Dry, Shortness of Breath, Hemoptysis, SOB with Excertion, Pleuritic Pain, Sputum, Wheezing Cardiovascular: negative: chest pain, palpitations, orthopnea, paroxysmal nocturnal dyspnea, edema, light headedness, other Gastrointestinal: negative: Nausea, Vomiting, Abdominal Pain, Diarrhea, Constipation, Melena, Hematochezia, Other Genitourinary: negative: Dysuria, Frequency, Incontinence, Hematuria, Retention , Other Musculoskeletal: Leg Pain. negative: Neck Pain, Shoulder Pain, Arm Pain, Back Pain, Hand Pain, Foot Pain, Other - Medications/Allergies Allergies/Adverse Reactions: Allergies Allergy/AdvReac Type Severity Reaction Status Date / Time morphine Allergy Rash Verified 06/19/16 18:09 Medications: Current Medications Acetaminophen (Tylenol) 650 mg PO Q4H PRN PRN Reason: Headache/Fever Last Admin: 11/23/18 11:01 Dose: 650 mg Hydrocodone Bitart/Acetaminophen ([place] 10/325) 1 tab PO Q4H PRN PRN Reason: Severe Pain (7-10) Last Admin: 11/26/18 20:16 Dose: 1 tab Hydrocodone Bitart/Acetaminophen ([place] 5/325) 1 tab PO Q4H PRN PRN Reason: Mild Pain (1-3) Hydrocodone Bitart/Acetaminophen ([place] 7.5/325) 1 tab PO Q4H PRN PRN Reason: Moderate Pain (4-6) Last Admin: 11/25/18 21:15 Dose: 1 tab Amlodipine Besylate (Norvasc) 10 mg PO DAILY [facility] Last Admin: 11/27/18 10:53 Dose: 10 mg Artificial Tears (Tears Naturale) 2 drop EA EYE PRN PRN PRN Reason: Dry Eyes Atenolol (Tenormin) 50 mg PO 0600,1800 [facility] Last Admin: 11/27/18 10:51 Dose: Not Given Bacitracin Zinc (Bacitracin Zinc Ointment 30 Gm) 0 gm TOP Q12HR [facility] Last Admin: 11/27/18 08:20 Dose: 1 applic Bacitracin Zinc (Bacitracin Zinc Ointment 30 Gm) 0 gm TOP PRN PRN PRN Reason: Wound Care Bisacodyl (Dulcolax) 10 mg [place] DAILYPRN PRN PRN Reason: Constipation Cephalexin (Keflex) 500 mg PO TID [facility] Last Admin: 11/27/18 08:20 Dose: 500 mg Clonidine (Catapres) 0.1 mg PO Q4H PRN PRN Reason: SBP GREATER THAN 160 Diazepam (Valium) 10 mg PO BIDPRN PRN PRN Reason: Anxiety Last Admin: 11/25/18 21:14 Dose: 10 mg Enoxaparin Sodium (Lovenox) 40 mg SC 0900 [facility] Last Admin: 11/27/18 10:57 Dose: Not Given Famotidine (Pepcid) 20 mg PO BID [facility] Last Admin: 11/27/18 08:20 Dose: 20 mg Fentanyl (Sublimaze) 25 mcg SLOW IVP Q4H PRN PRN Reason: Severe Pain (7-10) Last Admin: 11/26/18 14:43 Dose: 25 mcg Fentanyl (Sublimaze) 50 mcg SLOW IVP Q24H PRN PRN Reason: Wound Care Last Admin: 11/27/18 10:20 Dose: 50 mcg Fentanyl (Duragesic) 50 mcg TD Q3D [facility] Last Admin: 11/27/18 12:28 Dose: 50 mcg Furosemide (Lasix) 40 mg SLOW IVP 0600,1400 [facility] Last Admin: 11/27/18 10:52 Dose: Not Given Guaifenesin (Robitussin Sf) 200 mg PO Q4H PRN PRN Reason: Cough Guaifenesin/Dextromethorphan (Robitussin Dm) 15 ml PO Q4H PRN PRN Reason: Cough Hydralazine HCl (Apresoline) 10 mg SLOW IVP Q4H PRN PRN Reason: Hypertension Last Admin: 11/24/18 06:49 Dose: 10 mg Lidocaine (Lidoderm 5% Patch) 1 patch TD DAILY [facility] Last Admin: 11/27/18 10:58 Dose: Not Given Loperamide HCl (Imodium) 2 mg PO PRN PRN PRN Reason: Diarrhea/Loose Stools Loratadine (Claritin) 10 mg PO DAILYPRN PRN PRN Reason: Sinus Symptoms Miscellaneous Medication (Lidocaine Patch Removal) 0 each TOP 2100 [facility] Last Admin: 11/26/18 20:17 Dose: Not Given Ondansetron HCl (Zofran) 4 mg IVP Q6H PRN PRN Reason: Nausea/Vomiting Ondansetron HCl (Zofran Odt) 4 mg PO Q6H PRN PRN Reason: Nausea/Vomiting Polyethylene Glycol (Miralax) 17 gm PO DAILY [facility] Last Admin: 11/27/18 08:20 Dose: 17 gm Pregabalin (Lyrica) 75 mg PO BID [facility] Last Admin: 11/27/18 08:20 Dose: 75 mg Senna/Docusate Sodium (Senokot S) 2 tab PO BID [facility] Last Admin: 11/27/18 08:20 Dose: 2 tab Sodium Chloride ([place] Nasal [place] 0.65%) 0 ml EA NARE QIDPRN PRN PRN Reason: Nasal Congestion Sodium Chloride (Flush - Normal Saline) 10 ml IVF PRN PRN PRN Reason: Saline Flush Throat Lozenges (Cepastat Lozenges) 1 tiffanie PO Q2H PRN PRN Reason: Sore Throat Tramadol HCl (Ultram) 50 mg PO Q6H PRN PRN Reason: Pain Last Admin: 11/23/18 20:02 Dose: 50 mg Zolpidem Tartrate (Ambien) 5 mg PO HSPRN PRN PRN Reason: Insomnia Last Admin: 11/26/18 01:31 Dose: 5 mg
[2018-11-27] MEDS ORDERED: Fentanyl 100 MCG/2 ML VIAL SLOW IVP PRN (13:55)
[2018-11-27] MEDS: HYDROcodone/Acetaminophen 10/325 mg Tablet PO PRN ×2 (15:28→20:13)
[2018-11-27] MEDS ORDERED: Furosemide 40 MG/4 ML VIAL SLOW IVP SCH (16:00)
[2018-11-27] MEDS ORDERED: Furosemide 40 MG TAB PO SCH (16:45)
[2018-11-27] MEDS: Lidocaine Patch Removal 1 EACH TOP SCH (20:21)
[2018-11-27] MEDS: Zolpidem Tartrate 5 MG TAB PO PRN (22:08)
[2018-11-28] MEDS: HYDROcodone/Acetaminophen 10/325 mg Tablet PO PRN ×5 (02:23→21:24)
[2018-11-28] MEDS: Atenolol 50 MG TAB PO SCH ×2 (06:43→17:06)
[2018-11-28] MEDS ORDERED: Furosemide 40 MG/4 ML VIAL SLOW IVP SCH (09:00)
[2018-11-28] MEDS: Famotidine 20 MG TAB PO SCH ×2 (09:03→21:16)
[2018-11-28] MEDS: Furosemide 40 MG TAB PO SCH ×2 (09:04→14:42)
[2018-11-28] MEDS: Pregabalin 75 MG CAP PO SCH ×2 (09:07→21:16)
[2018-11-28] MEDS: Polyethylene Glycol 3350 17 GM Packet PO SCH (09:08)
[2018-11-28] MEDS: Lidocaine 5% Patch TD SCH (09:08)
[2018-11-28] MEDS: Enoxaparin Sodium 40 MG/0.4 ML SYRINGE SC SCH (09:08)
[2018-11-28] MEDS: Cephalexin 250 MG CAP PO SCH ×3 (09:11→21:18)
[2018-11-28] MEDS: Bacitracin Zinc Ointment 30 gm TUBE TOP SCH ×2 (09:12→21:19)
[2018-11-28] MEDS: Amlodipine 10 MG TAB PO SCH (09:13)
[2018-11-28] MEDS ORDERED: Senokot S 8.6-50 MG TAB PO SCH (09:30)
[2018-11-28] MEDS: Senokot S 8.6-50 MG TAB PO SCH ×2 (10:24→21:16)
--- NOTE | 2018-11-28 12:29 | PDOC.PN ---
- Subjective Encounter Start Date: 11/28/18 Encounter Start Time: 10:45 Patient seen and examined. No new complaints. No overnight events pt continue to complaint pain over left AKA stump site, he is going outside for smoking - Objective Resuscitation Status - Order Detail: 11/20/18 11:41 Resuscitation Status Routine Resuscitation Status: FULL: Full Resuscitation MAR Reviewed: Yes Vital Signs & Weight: Vital Signs (12 hours) Temp Pulse Resp BP BP Pulse Ox 11/28/18 11:24 97.8 F 60 18 160/74 H 94 L 11/28/18 08:00 95 11/28/18 07:59 97.5 F L 61 18 166/71 H 95 11/28/18 06:43 74 169/76 H Weight Admit Weight 246 lb 6 oz Weight 246 lb 6 oz I&O: 11/27/18 11/28/18 11/29/18 06:59 06:59 06:59 Intake Total 720 960 Output Total 1200 850 Balance -480 110 Result Diagrams: 11/21/18 04:35 11/21/18 04:35 Phys Exam - Physical Examination Constitutional: NAD HEENT: PERRLA, moist MMs, sclera anicteric Neck: no JVD, supple Respiratory: no wheezing, no rales, no rhonchi Cardiovascular: RRR, no significant murmur, no rub Gastrointestinal: soft, non-tender, no distention obesity+ Musculoskeletal: pulses present, edema present left AKA with dressing Neurological: non-focal, normal sensation, moves all 4 limbs Lymphatic: no nodes Psychiatric: normal affect, A&O x 3 Skin: no rash, normal turgor Dx/Plan (1) Amputation stump infection Code(s): T87.40 - INFECTION OF AMPUTATION STUMP, UNSPECIFIED EXTREMITY Status : Acute (2) Above knee amputation of left lower extremity Code(s): Z89.612 - ACQUIRED ABSENCE OF LEFT LEG ABOVE KNEE Status: Chronic Comment: with stump pain (3) CAD (coronary artery disease) Code(s): I25.10 - ATHSCL HEART DISEASE OF [place] CORONARY ARTERY W/O ANG PCTRS Status: Chronic Qualifiers: (4) CKD (chronic kidney disease) stage 3, GFR 30-59 ml/min Status: Chronic (5) COPD (chronic obstructive pulmonary disease) Status: Chronic Qualifiers: (6) Chronic prescription opiate use Code(s): Z79.891 - NIB FINISHER (CURRENT) USE OF OPIATE ANALGESIC Status: Chronic (7) Dyslipidemia Code(s): E78.5 - HYPERLIPIDEMIA, UNSPECIFIED Status: Chronic (8) GERD (gastroesophageal reflux disease) Code(s): K21.9 - GASTRO-ESOPHAGEAL REFLUX DISEASE WITHOUT ESOPHAGITIS Status: Chronic Qualifiers: (9) HTN (hypertension) Code(s): I10 - ESSENTIAL (PRIMARY) HYPERTENSION Status: Chronic Qualifiers: (10) Macrocytic anemia Code(s): D53.9 - NUTRITIONAL ANEMIA, UNSPECIFIED Status: Chronic (11) Obesity (BMI 30-39.9) Code(s): E66.9 - OBESITY, UNSPECIFIED Status: Chronic (12) PVD (peripheral vascular disease) Code(s): I73.9 - PERIPHERAL VASCULAR DISEASE, UNSPECIFIED Status: Chronic (13) Tobacco abuse Code(s): Z72.0 - TOBACCO USE Status: Chronic - Plan cont current plan of care, continue antibiotics * medication reviewed as below * symptomatic treatment * continue keflex * pain management * will consult general surgery for his opinion regarding anything can be done at stump site. * wound care * will change amlodipine to lisinopril for his leg edema Review of Systems - Review of Systems ENT: negative: Ear Pain, Ear Discharge, Nose Pain, Nose Discharge, Nose Congestion, Mouth Pain, Mouth Swelling, Throat Pain, Throat Swelling, Other Respiratory: negative: Cough, Dry, Shortness of Breath, Hemoptysis, SOB with Excertion, Pleuritic Pain, Sputum, Wheezing Cardiovascular: negative: chest pain, palpitations, orthopnea, paroxysmal nocturnal dyspnea, edema, light headedness, other Gastrointestinal: negative: Nausea, Vomiting, Abdominal Pain, Diarrhea, Constipation, Melena, Hematochezia, Other Genitourinary: negative: Dysuria, Frequency, Incontinence, Hematuria, Retention , Other Musculoskeletal: Leg Pain. negative: Neck Pain, Shoulder Pain, Arm Pain, Back Pain, Hand Pain, Foot Pain, Other - Medications/Allergies Allergies/Adverse Reactions: Allergies Allergy/AdvReac Type Severity Reaction Status Date / Time piperacillin [From Zosyn] Allergy Verified 11/27/18 18:32 tazobactam [From Zosyn] Allergy Verified 11/27/18 18:32 Medications: Current Medications Acetaminophen (Tylenol) 650 mg PO Q4H PRN PRN Reason: Headache/Fever Last Admin: 11/23/18 11:01 Dose: 650 mg Hydrocodone Bitart/Acetaminophen ([place] 10/325) 1 tab PO Q4H PRN PRN Reason: Severe Pain (7-10) Last Admin: 11/28/18 10:25 Dose: 1 tab Hydrocodone Bitart/Acetaminophen ([place] 5/325) 1 tab PO Q4H PRN PRN Reason: Mild Pain (1-3) Hydrocodone Bitart/Acetaminophen ([place] 7.5/325) 1 tab PO Q4H PRN PRN Reason: Moderate Pain (4-6) Last Admin: 11/25/18 21:15 Dose: 1 tab Amlodipine Besylate (Norvasc) 10 mg PO DAILY [facility] Last Admin: 11/28/18 09:13 Dose: Not Given Artificial Tears (Tears Naturale) 2 drop EA EYE PRN PRN PRN Reason: Dry Eyes Atenolol (Tenormin) 50 mg PO 0600,1800 [facility] Last Admin: 11/28/18 06:43 Dose: 50 mg Bacitracin Zinc (Bacitracin Zinc Ointment 30 Gm) 0 gm TOP Q12HR [facility] Last Admin: 11/28/18 09:12 Dose: Not Given Bacitracin Zinc (Bacitracin Zinc Ointment 30 Gm) 0 gm TOP PRN PRN PRN Reason: Wound Care Bisacodyl (Dulcolax) 10 mg [place] DAILYPRN PRN PRN Reason: Constipation Cephalexin (Keflex) 500 mg PO TID [facility] Last Admin: 11/28/18 09:11 Dose: 500 mg Clonidine (Catapres) 0.1 mg PO Q4H PRN PRN Reason: SBP GREATER THAN 160 Diazepam (Valium) 10 mg PO BIDPRN PRN PRN Reason: Anxiety Last Admin: 11/25/18 21:14 Dose: 10 mg Enoxaparin Sodium (Lovenox) 40 mg SC 0900 [facility] Last Admin: 11/28/18 09:08 Dose: Not Given Famotidine (Pepcid) 20 mg PO BID [facility] Last Admin: 11/28/18 09:03 Dose: 20 mg Fentanyl (Duragesic) 50 mcg TD Q3D [facility] Last Admin: 11/27/18 12:28 Dose: 50 mcg Fentanyl (Duragesic) 25 mcg TD Q3D [facility] Last Admin: 11/27/18 16:57 Dose: 25 mcg Furosemide (Lasix) 40 mg PO 0900,1400 [facility] Last Admin: 11/28/18 09:04 Dose: 40 mg Guaifenesin (Robitussin Sf) 200 mg PO Q4H PRN PRN Reason: Cough Guaifenesin/Dextromethorphan (Robitussin Dm) 15 ml PO Q4H PRN PRN Reason: Cough Hydralazine HCl (Apresoline) 10 mg SLOW IVP Q4H PRN PRN Reason: Hypertension Last Admin: 11/24/18 06:49 Dose: 10 mg Lidocaine (Lidoderm 5% Patch) 1 patch TD DAILY [facility] Last Admin: 11/28/18 09:08 Dose: Not Given Loperamide HCl (Imodium) 2 mg PO PRN PRN PRN Reason: Diarrhea/Loose Stools Loratadine (Claritin) 10 mg PO DAILYPRN PRN PRN Reason: Sinus Symptoms Miscellaneous Medication (Lidocaine Patch Removal) 0 each TOP 2100 [facility] Last Admin: 11/27/18 20:21 Dose: Not Given Ondansetron HCl (Zofran) 4 mg IVP Q6H PRN PRN Reason: Nausea/Vomiting Ondansetron HCl (Zofran Odt) 4 mg PO Q6H PRN PRN Reason: Nausea/Vomiting Polyethylene Glycol (Miralax) 17 gm PO DAILY [facility] Last Admin: 11/28/18 09:08 Dose: 17 gm Pregabalin (Lyrica) 75 mg PO BID [facility] Last Admin: 11/28/18 09:07 Dose: 75 mg Senna/Docusate Sodium (Senokot S) 2 tab PO BID [facility] Last Admin: 11/28/18 10:24 Dose: 1 tab Sodium Chloride ([place] Nasal [place] 0.65%) 0 ml EA NARE QIDPRN PRN PRN Reason: Nasal Congestion Sodium Chloride (Flush - Normal Saline) 10 ml IVF PRN PRN PRN Reason: Saline Flush Throat Lozenges (Cepastat Lozenges) 1 tiffanie PO Q2H PRN PRN Reason: Sore Throat Tramadol HCl (Ultram) 50 mg PO Q6H PRN PRN Reason: Pain Last Admin: 11/23/18 20:02 Dose: 50 mg Zolpidem Tartrate (Ambien) 5 mg PO HSPRN PRN PRN Reason: Insomnia Last Admin: 11/27/18 22:08 Dose: 5 mg
[2018-11-28] MEDS: Lidocaine Patch Removal 1 EACH TOP SCH (21:18)
[2018-11-29] MEDS: Diazepam 5 MG TAB PO PRN (00:44)
[2018-11-29] MEDS: HYDROcodone/Acetaminophen 10/325 mg Tablet PO PRN ×6 (01:40→23:06)
[2018-11-29] MEDS: Atenolol 50 MG TAB PO SCH ×2 (05:49→17:13)
[2018-11-29] MEDS: Cephalexin 250 MG CAP PO SCH ×3 (09:04→20:22)
[2018-11-29] MEDS: Lisinopril 10 MG TAB PO SCH (09:05)
[2018-11-29] MEDS: Pregabalin 75 MG CAP PO SCH ×2 (09:05→20:23)
[2018-11-29] MEDS: Polyethylene Glycol 3350 17 GM Packet PO SCH (09:05)
[2018-11-29] MEDS: Senokot S 8.6-50 MG TAB PO SCH ×2 (09:05→20:23)
[2018-11-29] MEDS: Famotidine 20 MG TAB PO SCH ×2 (09:05→20:22)
[2018-11-29] MEDS: Furosemide 40 MG TAB PO SCH ×2 (09:05→14:24)
[2018-11-29] MEDS: Enoxaparin Sodium 40 MG/0.4 ML SYRINGE SC SCH (09:06)
[2018-11-29] MEDS: Bacitracin Zinc Ointment 30 gm TUBE TOP SCH ×2 (09:06→20:18)
[2018-11-29] MEDS: Lidocaine 5% Patch TD SCH (09:07)
--- NOTE | 2018-11-29 11:37 | PDOC.PN ---
- Subjective Encounter Start Date: 11/29/18 Encounter Start Time: 09:45 - Objective Resuscitation Status - Order Detail: 11/20/18 11:41 Resuscitation Status Routine Resuscitation Status: FULL: Full Resuscitation MAR Reviewed: Yes Vital Signs & Weight: Vital Signs (12 hours) Temp Pulse Resp BP BP Pulse Ox 11/29/18 09:29 143/75 H 11/29/18 09:13 98.1 F 78 24 H 96 11/29/18 08:00 97 11/29/18 05:49 73 196/81 H Weight Admit Weight 246 lb 6 oz Weight 246 lb 6 oz I&O: 11/28/18 11/29/18 11/30/18 06:59 06:59 06:59 Intake Total 960 1360 Output Total 850 Balance 110 1360 Result Diagrams: 11/21/18 04:35 11/21/18 04:35 Phys Exam - Physical Examination Constitutional: NAD HEENT: PERRLA, moist MMs, sclera anicteric Neck: no JVD, supple Respiratory: no wheezing, no rales, no rhonchi, clear to auscultation bilateral Cardiovascular: RRR, no significant murmur, no rub Gastrointestinal: soft, non-tender, no distention, positive bowel sounds obesity+ left AKA stump with dressing, right leg edema+ Neurological: non-focal, normal sensation Lymphatic: no nodes Psychiatric: normal affect, A&O x 3 Skin: no rash, normal turgor Dx/Plan (1) Amputation stump infection Code(s): T87.40 - INFECTION OF AMPUTATION STUMP, UNSPECIFIED EXTREMITY Status : Acute (2) Above knee amputation of left lower extremity Code(s): Z89.612 - ACQUIRED ABSENCE OF LEFT LEG ABOVE KNEE Status: Chronic Comment: with stump pain (3) CAD (coronary artery disease) Code(s): I25.10 - ATHSCL HEART DISEASE OF [place] CORONARY ARTERY W/O ANG PCTRS Status: Chronic Qualifiers: (4) CKD (chronic kidney disease) stage 3, GFR 30-59 ml/min Status: Chronic (5) COPD (chronic obstructive pulmonary disease) Status: Chronic Qualifiers: (6) Chronic prescription opiate use Code(s): Z79.891 - REFERRAL AND INFORMATION AIDE (CURRENT) USE OF OPIATE ANALGESIC Status: Chronic (7) Dyslipidemia Code(s): E78.5 - HYPERLIPIDEMIA, UNSPECIFIED Status: Chronic (8) GERD (gastroesophageal reflux disease) Code(s): K21.9 - GASTRO-ESOPHAGEAL REFLUX DISEASE WITHOUT ESOPHAGITIS Status: Chronic Qualifiers: (9) HTN (hypertension) Code(s): I10 - ESSENTIAL (PRIMARY) HYPERTENSION Status: Chronic Qualifiers: (10) Macrocytic anemia Code(s): D53.9 - NUTRITIONAL ANEMIA, UNSPECIFIED Status: Chronic (11) Obesity (BMI 30-39.9) Code(s): E66.9 - OBESITY, UNSPECIFIED Status: Chronic (12) PVD (peripheral vascular disease) Code(s): I73.9 - PERIPHERAL VASCULAR DISEASE, UNSPECIFIED Status: Chronic (13) Tobacco abuse Code(s): Z72.0 - TOBACCO USE Status: Chronic - Plan cont current plan of care, continue antibiotics * currently on PO meds * medication reviewed as below * symptomatic treatment * pain control * wound care. Review of Systems - Review of Systems ENT: negative: Ear Pain, Ear Discharge, Nose Pain, Nose Discharge, Nose Congestion, Mouth Pain, Mouth Swelling, Throat Pain, Throat Swelling, Other Respiratory: negative: Cough, Dry, Shortness of Breath, Hemoptysis, SOB with Excertion, Pleuritic Pain, Sputum, Wheezing Gastrointestinal: negative: Nausea, Vomiting, Abdominal Pain, Diarrhea, Constipation, Melena, Hematochezia, Other Genitourinary: negative: Dysuria, Frequency, Incontinence, Hematuria, Retention , Other Musculoskeletal: Leg Pain. negative: Neck Pain, Shoulder Pain, Arm Pain, Back Pain, Hand Pain, Foot Pain, Other - Medications/Allergies Allergies/Adverse Reactions: Allergies Allergy/AdvReac Type Severity Reaction Status Date / Time piperacillin [From Zosyn] Allergy Verified 11/27/18 18:32 tazobactam [From Zosyn] Allergy Verified 11/27/18 18:32 Medications: Current Medications Acetaminophen (Tylenol) 650 mg PO Q4H PRN PRN Reason: Headache/Fever Last Admin: 11/23/18 11:01 Dose: 650 mg Hydrocodone Bitart/Acetaminophen ([place] 10/325) 1 tab PO Q4H PRN PRN Reason: Severe Pain (7-10) Last Admin: 11/29/18 09:30 Dose: 1 tab Hydrocodone Bitart/Acetaminophen ([place] 5/325) 1 tab PO Q4H PRN PRN Reason: Mild Pain (1-3) Hydrocodone Bitart/Acetaminophen ([place] 7.5/325) 1 tab PO Q4H PRN PRN Reason: Moderate Pain (4-6) Last Admin: 11/25/18 21:15 Dose: 1 tab Artificial Tears (Tears Naturale) 2 drop EA EYE PRN PRN PRN Reason: Dry Eyes Atenolol (Tenormin) 50 mg PO 0600,1800 [facility] Last Admin: 11/29/18 05:49 Dose: 50 mg Bacitracin Zinc (Bacitracin Zinc Ointment 30 Gm) 0 gm TOP Q12HR [facility] Last Admin: 11/29/18 09:06 Dose: Not Given Bacitracin Zinc (Bacitracin Zinc Ointment 30 Gm) 0 gm TOP PRN PRN PRN Reason: Wound Care Bisacodyl (Dulcolax) 10 mg [place] DAILYPRN PRN PRN Reason: Constipation Cephalexin (Keflex) 500 mg PO TID [facility] Last Admin: 11/29/18 09:04 Dose: 500 mg Clonidine (Catapres) 0.1 mg PO Q4H PRN PRN Reason: SBP GREATER THAN 160 Last Admin: 11/28/18 17:57 Dose: 0.1 mg Diazepam (Valium) 10 mg PO BIDPRN PRN PRN Reason: Anxiety Last Admin: 11/29/18 00:44 Dose: 10 mg Enoxaparin Sodium (Lovenox) 40 mg SC 0900 [facility] Last Admin: 11/29/18 09:06 Dose: Not Given Famotidine (Pepcid) 20 mg PO BID [facility] Last Admin: 11/29/18 09:05 Dose: 20 mg Fentanyl (Duragesic) 50 mcg TD Q3D [facility] Last Admin: 11/27/18 12:28 Dose: 50 mcg Fentanyl (Duragesic) 25 mcg TD Q3D [facility] Last Admin: 11/27/18 16:57 Dose: 25 mcg Furosemide (Lasix) 40 mg PO 0900,1400 [facility] Last Admin: 11/29/18 09:05 Dose: 40 mg Guaifenesin (Robitussin Sf) 200 mg PO Q4H PRN PRN Reason: Cough Guaifenesin/Dextromethorphan (Robitussin Dm) 15 ml PO Q4H PRN PRN Reason: Cough Hydralazine HCl (Apresoline) 10 mg SLOW IVP Q4H PRN PRN Reason: Hypertension Last Admin: 11/24/18 06:49 Dose: 10 mg Lidocaine (Lidoderm 5% Patch) 1 patch TD DAILY [facility] Last Admin: 11/29/18 09:07 Dose: Not Given Lisinopril (Zestril) 10 mg PO DAILY [facility] Last Admin: 11/29/18 09:05 Dose: 10 mg Loperamide HCl (Imodium) 2 mg PO PRN PRN PRN Reason: Diarrhea/Loose Stools Loratadine (Claritin) 10 mg PO DAILYPRN PRN PRN Reason: Sinus Symptoms Miscellaneous Medication (Lidocaine Patch Removal) 0 each TOP 2100 [facility] Last Admin: 11/28/18 21:18 Dose: Not Given Ondansetron HCl (Zofran) 4 mg IVP Q6H PRN PRN Reason: Nausea/Vomiting Ondansetron HCl (Zofran Odt) 4 mg PO Q6H PRN PRN Reason: Nausea/Vomiting Polyethylene Glycol (Miralax) 17 gm PO DAILY [facility] Last Admin: 11/29/18 09:05 Dose: 17 gm Pregabalin (Lyrica) 75 mg PO BID [facility] Last Admin: 11/29/18 09:05 Dose: 75 mg Senna/Docusate Sodium (Senokot S) 2 tab PO BID [facility] Last Admin: 11/29/18 09:05 Dose: 2 tab Sodium Chloride ([place] Nasal [place] 0.65%) 0 ml EA NARE QIDPRN PRN PRN Reason: Nasal Congestion Sodium Chloride (Flush - Normal Saline) 10 ml IVF PRN PRN PRN Reason: Saline Flush Throat Lozenges (Cepastat Lozenges) 1 tiffanie PO Q2H PRN PRN Reason: Sore Throat Tramadol HCl (Ultram) 50 mg PO Q6H PRN PRN Reason: Pain Last Admin: 11/23/18 20:02 Dose: 50 mg Zolpidem Tartrate (Ambien) 5 mg PO HSPRN PRN PRN Reason: Insomnia Last Admin: 11/27/18 22:08 Dose: 5 mg
[2018-11-29] MEDS: Lidocaine Patch Removal 1 EACH TOP SCH (20:25)
[2018-11-29] MEDS: Zolpidem Tartrate 5 MG TAB PO PRN (22:20)
[2018-11-30] MEDS: Diazepam 5 MG TAB PO PRN (00:50)
[2018-11-30] MEDS: Atenolol 50 MG TAB PO SCH ×2 (05:36→17:15)
[2018-11-30] MEDS: HYDROcodone/Acetaminophen 10/325 mg Tablet PO PRN ×2 (05:43→11:07)
[2018-11-30] MEDS: Pregabalin 75 MG CAP PO SCH ×2 (08:48→20:09)
[2018-11-30] MEDS: Senokot S 8.6-50 MG TAB PO SCH ×2 (08:48→20:08)
[2018-11-30] MEDS: Famotidine 20 MG TAB PO SCH ×2 (08:48→20:10)
[2018-11-30] MEDS: Furosemide 40 MG TAB PO SCH ×2 (08:48→13:29)
[2018-11-30] MEDS: Lisinopril 10 MG TAB PO SCH (08:48)
[2018-11-30] MEDS: Enoxaparin Sodium 40 MG/0.4 ML SYRINGE SC SCH (08:49)
[2018-11-30] MEDS: Bacitracin Zinc Ointment 30 gm TUBE TOP SCH ×3 (08:49→20:16)
[2018-11-30] MEDS: Polyethylene Glycol 3350 17 GM Packet PO SCH (08:49)
[2018-11-30] MEDS: Lidocaine 5% Patch TD SCH (08:49)
[2018-11-30] MEDS ORDERED: Morphine 4 MG/ML VIAL SLOW IVP PRN (10:39)
[2018-11-30] MEDS ORDERED: fentaNYL 75 mcg/hour Patch TD SCH (10:45)
[2018-11-30] MEDS: Cephalexin 250 MG CAP PO SCH ×3 (11:08→20:10)
--- NOTE | 2018-11-30 11:28 | PDOC.PN ---
- Subjective Encounter Start Date: 11/30/18 Encounter Start Time: 09:20 Patient seen and examined. No new complaints. No overnight events today his pain is not controlled - Objective Resuscitation Status - Order Detail: 11/20/18 11:41 Resuscitation Status Routine Resuscitation Status: FULL: Full Resuscitation MAR Reviewed: Yes Vital Signs & Weight: Vital Signs (12 hours) Temp Pulse Resp BP BP Pulse Ox 11/30/18 09:06 98.3 F 60 16 129/71 93 L 11/30/18 08:00 93 L 11/30/18 05:36 74 167/86 H Weight Admit Weight 246 lb 6 oz Weight 246 lb 6 oz I&O: 11/29/18 11/30/18 12/01/18 06:59 06:59 06:59 Intake Total 1360 1700 Balance 1360 1700 Result Diagrams: 11/21/18 04:35 11/21/18 04:35 Phys Exam - Physical Examination Constitutional: NAD HEENT: PERRLA, moist MMs, sclera anicteric Neck: no JVD, supple Respiratory: no wheezing, no rales, no rhonchi Cardiovascular: RRR, no significant murmur, no rub Gastrointestinal: soft, non-tender, no distention, positive bowel sounds left AKA wound with cellulitis at stump Neurological: non-focal, normal sensation, moves all 4 limbs Lymphatic: no nodes Psychiatric: normal affect, A&O x 3 Skin: no rash, normal turgor Dx/Plan (1) Amputation stump infection Code(s): T87.40 - INFECTION OF AMPUTATION STUMP, UNSPECIFIED EXTREMITY Status : Acute (2) Above knee amputation of left lower extremity Code(s): Z89.612 - ACQUIRED ABSENCE OF LEFT LEG ABOVE KNEE Status: Chronic Comment: with stump pain (3) CAD (coronary artery disease) Code(s): I25.10 - ATHSCL HEART DISEASE OF [place] CORONARY ARTERY W/O ANG PCTRS Status: Chronic Qualifiers: (4) CKD (chronic kidney disease) stage 3, GFR 30-59 ml/min Status: Chronic (5) COPD (chronic obstructive pulmonary disease) Status: Chronic Qualifiers: (6) Chronic prescription opiate use Code(s): Z79.891 - SENIOR CARE (CURRENT) USE OF OPIATE ANALGESIC Status: Chronic (7) Dyslipidemia Code(s): E78.5 - HYPERLIPIDEMIA, UNSPECIFIED Status: Chronic (8) GERD (gastroesophageal reflux disease) Code(s): K21.9 - GASTRO-ESOPHAGEAL REFLUX DISEASE WITHOUT ESOPHAGITIS Status: Chronic Qualifiers: (9) HTN (hypertension) Code(s): I10 - ESSENTIAL (PRIMARY) HYPERTENSION Status: Chronic Qualifiers: (10) Macrocytic anemia Code(s): D53.9 - NUTRITIONAL ANEMIA, UNSPECIFIED Status: Chronic (11) Obesity (BMI 30-39.9) Code(s): E66.9 - OBESITY, UNSPECIFIED Status: Chronic (12) PVD (peripheral vascular disease) Code(s): I73.9 - PERIPHERAL VASCULAR DISEASE, UNSPECIFIED Status: Chronic (13) Tobacco abuse Code(s): Z72.0 - TOBACCO USE Status: Chronic - Plan cont current plan of care, continue antibiotics * will add morphin as needed for breakthrough pain * medication reviewed as below * symptomatic treatment * wound care * consider discharge soon * i spoke dr amin, no surgical intervention planned * dr stearns does not want to see as dr amin done AKA * ortho said, no surgical intervention needed * he will need pain management and wound care, nothing else . Review of Systems - Review of Systems ENT: negative: Ear Pain, Ear Discharge, Nose Pain, Nose Discharge, Nose Congestion, Mouth Pain, Mouth Swelling, Throat Pain, Throat Swelling, Other Respiratory: negative: Cough, Dry, Shortness of Breath, Hemoptysis, SOB with Excertion, Pleuritic Pain, Sputum, Wheezing Cardiovascular: negative: chest pain, palpitations, orthopnea, paroxysmal nocturnal dyspnea, edema, light headedness, other Gastrointestinal: negative: Nausea, Vomiting, Abdominal Pain, Diarrhea, Constipation, Melena, Hematochezia, Other Genitourinary: negative: Dysuria, Frequency, Incontinence, Hematuria, Retention , Other Musculoskeletal: Leg Pain. negative: Neck Pain, Shoulder Pain, Arm Pain, Back Pain, Hand Pain, Foot Pain, Other - Medications/Allergies Allergies/Adverse Reactions: Allergies Allergy/AdvReac Type Severity Reaction Status Date / Time piperacillin [From Zosyn] Allergy Verified 11/27/18 18:32 tazobactam [From Zosyn] Allergy Verified 11/27/18 18:32 Medications: Current Medications Acetaminophen (Tylenol) 650 mg PO Q4H PRN PRN Reason: Headache/Fever Last Admin: 11/23/18 11:01 Dose: 650 mg Hydrocodone Bitart/Acetaminophen ([place] 10/325) 1 tab PO Q4H PRN PRN Reason: Severe Pain (7-10) Last Admin: 11/30/18 11:07 Dose: 1 tab Hydrocodone Bitart/Acetaminophen ([place] 5/325) 1 tab PO Q4H PRN PRN Reason: Mild Pain (1-3) Hydrocodone Bitart/Acetaminophen ([place] 7.5/325) 1 tab PO Q4H PRN PRN Reason: Moderate Pain (4-6) Last Admin: 11/25/18 21:15 Dose: 1 tab Artificial Tears (Tears Naturale) 2 drop EA EYE PRN PRN PRN Reason: Dry Eyes Atenolol (Tenormin) 50 mg PO 0600,1800 [facility] Last Admin: 11/30/18 05:36 Dose: 50 mg Bacitracin Zinc (Bacitracin Zinc Ointment 30 Gm) 0 gm TOP Q12HR [facility] Last Admin: 11/30/18 08:49 Dose: Not Given Bacitracin Zinc (Bacitracin Zinc Ointment 30 Gm) 0 gm TOP PRN PRN PRN Reason: Wound Care Bisacodyl (Dulcolax) 10 mg [place] DAILYPRN PRN PRN Reason: Constipation Cephalexin (Keflex) 500 mg PO TID [facility] Last Admin: 11/30/18 11:08 Dose: 500 mg Clonidine (Catapres) 0.1 mg PO Q4H PRN PRN Reason: SBP GREATER THAN 160 Last Admin: 11/28/18 17:57 Dose: 0.1 mg Diazepam (Valium) 10 mg PO BIDPRN PRN PRN Reason: Anxiety Last Admin: 11/30/18 00:50 Dose: 10 mg Doxycycline Hyclate (Vibramycin) 100 mg PO BID [facility] Enoxaparin Sodium (Lovenox) 40 mg SC 0900 [facility] Last Admin: 11/30/18 08:49 Dose: Not Given Famotidine (Pepcid) 20 mg PO BID [facility] Last Admin: 11/30/18 08:48 Dose: 20 mg Fentanyl (Duragesic) 75 mcg TD Q3D [facility] Furosemide (Lasix) 40 mg PO 0900,1400 [facility] Last Admin: 11/30/18 08:48 Dose: 40 mg Guaifenesin (Robitussin Sf) 200 mg PO Q4H PRN PRN Reason: Cough Guaifenesin/Dextromethorphan (Robitussin Dm) 15 ml PO Q4H PRN PRN Reason: Cough Hydralazine HCl (Apresoline) 10 mg SLOW IVP Q4H PRN PRN Reason: Hypertension Last Admin: 11/24/18 06:49 Dose: 10 mg Lidocaine (Lidoderm 5% Patch) 1 patch TD DAILY [facility] Last Admin: 11/30/18 08:49 Dose: Not Given Lisinopril (Zestril) 10 mg PO DAILY [facility] Last Admin: 11/30/18 08:48 Dose: 10 mg Loperamide HCl (Imodium) 2 mg PO PRN PRN PRN Reason: Diarrhea/Loose Stools Loratadine (Claritin) 10 mg PO DAILYPRN PRN PRN Reason: Sinus Symptoms Miscellaneous Medication (Lidocaine Patch Removal) 0 each TOP 2100 [facility] Last Admin: 11/29/18 20:25 Dose: Not Given Morphine Sulfate (Morphine Ir) 10 mg PO Q4H PRN PRN Reason: Pain Ondansetron HCl (Zofran) 4 mg IVP Q6H PRN PRN Reason: Nausea/Vomiting Ondansetron HCl (Zofran Odt) 4 mg PO Q6H PRN PRN Reason: Nausea/Vomiting Polyethylene Glycol (Miralax) 17 gm PO DAILY [facility] Last Admin: 11/30/18 08:49 Dose: 17 gm Pregabalin (Lyrica) 75 mg PO BID [facility] Last Admin: 11/30/18 08:48 Dose: 75 mg Senna/Docusate Sodium (Senokot S) 2 tab PO BID [facility] Last Admin: 11/30/18 08:48 Dose: 2 tab Sodium Chloride ([place] Nasal [place] 0.65%) 0 ml EA NARE QIDPRN PRN PRN Reason: Nasal Congestion Sodium Chloride (Flush - Normal Saline) 10 ml IVF PRN PRN PRN Reason: Saline Flush Throat Lozenges (Cepastat Lozenges) 1 tiffanie PO Q2H PRN PRN Reason: Sore Throat Tramadol HCl (Ultram) 50 mg PO Q6H PRN PRN Reason: Pain Last Admin: 11/23/18 20:02 Dose: 50 mg Zolpidem Tartrate (Ambien) 5 mg PO HSPRN PRN PRN Reason: Insomnia Last Admin: 11/29/18 22:20 Dose: 5 mg
[2018-11-30] MEDS: Morphine IR 10 MG/5 ML UDCUP PO PRN ×3 (13:29→22:39)
[2018-11-30] MEDS: Doxycycline 100 MG CAP PO SCH (20:08)
[2018-11-30] MEDS: Lidocaine Patch Removal 1 EACH TOP SCH (20:13)
[2018-12-01] MEDS: Zolpidem Tartrate 5 MG TAB PO PRN (00:35)
[2018-12-01] MEDS: Atenolol 50 MG TAB PO SCH ×2 (05:04→17:18)
[2018-12-01] MEDS: Lisinopril 10 MG TAB PO SCH (09:36)
[2018-12-01] MEDS: Famotidine 20 MG TAB PO SCH ×2 (09:36→20:08)
[2018-12-01] MEDS: Cephalexin 250 MG CAP PO SCH ×3 (09:36→20:06)
[2018-12-01] MEDS: Senokot S 8.6-50 MG TAB PO SCH ×2 (09:36→20:06)
[2018-12-01] MEDS: Furosemide 40 MG TAB PO SCH ×2 (09:36→15:07)
[2018-12-01] MEDS: Pregabalin 75 MG CAP PO SCH ×2 (09:37→20:07)
[2018-12-01] MEDS: Doxycycline 100 MG CAP PO SCH ×2 (09:37→20:06)
[2018-12-01] MEDS: Polyethylene Glycol 3350 17 GM Packet PO SCH (09:38)
[2018-12-01] MEDS: Lidocaine 5% Patch TD SCH (09:38)
[2018-12-01] MEDS: Bacitracin Zinc Ointment 30 gm TUBE TOP SCH (09:38)
[2018-12-01] MEDS: Enoxaparin Sodium 40 MG/0.4 ML SYRINGE SC SCH (09:38)
[2018-12-01] MEDS: Morphine IR 10 MG/5 ML UDCUP PO PRN ×2 (09:53→15:18)
[2018-12-01] MEDS: HYDROcodone/Acetaminophen 10/325 mg Tablet PO PRN ×2 (15:07→21:35)
[2018-12-01] MEDS: Lidocaine Patch Removal 1 EACH TOP SCH (20:06)
--- NOTE | 2018-12-01 21:53 | PDOC.PN ---
- Subjective Encounter Start Date: 12/01/18 Encounter Start Time: 10:15 pt still has left AKA stum pain, no fever - Objective Resuscitation Status - Order Detail: 11/20/18 11:41 Resuscitation Status Routine Resuscitation Status: FULL: Full Resuscitation MAR Reviewed: Yes Vital Signs & Weight: Vital Signs (12 hours) Temp Pulse Resp BP BP Pulse Ox 12/01/18 20:00 98.0 F 60 15 145/77 H 95 12/01/18 17:18 55 L 152/77 H 12/01/18 11:29 98.2 F 55 L 16 152/77 H 95 Weight Admit Weight 246 lb 6 oz Weight 246 lb 6 oz I&O: 11/30/18 12/01/18 12/02/18 06:59 06:59 06:59 Intake Total 1700 800 240 Balance 1700 800 240 Result Diagrams: 11/21/18 04:35 11/21/18 04:35 Phys Exam - Physical Examination Constitutional: NAD HEENT: PERRLA, moist MMs, sclera anicteric Neck: no JVD, supple Respiratory: no wheezing, no rales, no rhonchi Cardiovascular: RRR, no significant murmur, no rub Gastrointestinal: soft, non-tender, no distention, positive bowel sounds obesity+ left AKA site with dressing, right leg edema+ Neurological: non-focal Lymphatic: no nodes Psychiatric: normal affect, A&O x 3 Skin: no rash, normal turgor Dx/Plan (1) Amputation stump infection Code(s): T87.40 - INFECTION OF AMPUTATION STUMP, UNSPECIFIED EXTREMITY Status : Acute (2) Above knee amputation of left lower extremity Code(s): Z89.612 - ACQUIRED ABSENCE OF LEFT LEG ABOVE KNEE Status: Chronic Comment: with stump pain (3) CAD (coronary artery disease) Code(s): I25.10 - ATHSCL HEART DISEASE OF [place] CORONARY ARTERY W/O ANG PCTRS Status: Chronic Qualifiers: (4) CKD (chronic kidney disease) stage 3, GFR 30-59 ml/min Status: Chronic (5) COPD (chronic obstructive pulmonary disease) Status: Chronic Qualifiers: (6) Chronic prescription opiate use Code(s): Z79.891 - [place] [employer] (CURRENT) USE OF OPIATE ANALGESIC Status: Chronic (7) Dyslipidemia Code(s): E78.5 - HYPERLIPIDEMIA, UNSPECIFIED Status: Chronic (8) GERD (gastroesophageal reflux disease) Code(s): K21.9 - GASTRO-ESOPHAGEAL REFLUX DISEASE WITHOUT ESOPHAGITIS Status: Chronic Qualifiers: (9) HTN (hypertension) Code(s): I10 - ESSENTIAL (PRIMARY) HYPERTENSION Status: Chronic Qualifiers: (10) Macrocytic anemia Code(s): D53.9 - NUTRITIONAL ANEMIA, UNSPECIFIED Status: Chronic (11) Obesity (BMI 30-39.9) Code(s): E66.9 - OBESITY, UNSPECIFIED Status: Chronic (12) PVD (peripheral vascular disease) Code(s): I73.9 - PERIPHERAL VASCULAR DISEASE, UNSPECIFIED Status: Chronic (13) Tobacco abuse Code(s): Z72.0 - TOBACCO USE Status: Chronic - Plan cont current plan of care, continue antibiotics * will get ID opinion regarding stump infection * currently on oral doxy and keflex * pain control * medication reviewed as below * symptomatic treatment. Review of Systems - Review of Systems ENT: negative: Ear Pain, Ear Discharge, Nose Pain, Nose Discharge, Nose Congestion, Mouth Pain, Mouth Swelling, Throat Pain, Throat Swelling, Other Respiratory: negative: Cough, Dry, Shortness of Breath, Hemoptysis, SOB with Excertion, Pleuritic Pain, Sputum, Wheezing Cardiovascular: edema. negative: chest pain, palpitations, orthopnea, paroxysmal nocturnal dyspnea, light headedness, other Gastrointestinal: negative: Nausea, Vomiting, Abdominal Pain, Diarrhea, Constipation, Melena, Hematochezia, Other Genitourinary: negative: Dysuria, Frequency, Incontinence, Hematuria, Retention , Other Musculoskeletal: Leg Pain. negative: Neck Pain, Shoulder Pain, Arm Pain, Back Pain, Hand Pain, Foot Pain, Other Skin: negative: Rash, Lesions, Tyrel, Bruising, Other - Medications/Allergies Allergies/Adverse Reactions: Allergies Allergy/AdvReac Type Severity Reaction Status Date / Time piperacillin [From Zosyn] Allergy Verified 11/27/18 18:32 tazobactam [From Zosyn] Allergy Verified 11/27/18 18:32 Medications: Current Medications Acetaminophen (Tylenol) 650 mg PO Q4H PRN PRN Reason: Headache/Fever Last Admin: 11/23/18 11:01 Dose: 650 mg Hydrocodone Bitart/Acetaminophen ([place] 10/325) 1 tab PO Q4H PRN PRN Reason: Pain Last Admin: 12/01/18 21:35 Dose: 1 tab Artificial Tears (Tears Naturale) 2 drop EA EYE PRN PRN PRN Reason: Dry Eyes Atenolol (Tenormin) 50 mg PO 0600,1800 [facility] Last Admin: 12/01/18 17:18 Dose: 50 mg Bacitracin Zinc (Bacitracin Zinc Ointment 30 Gm) 0 gm TOP Q12HR [facility] Last Admin: 12/01/18 09:38 Dose: 1 applic Bacitracin Zinc (Bacitracin Zinc Ointment 30 Gm) 0 gm TOP PRN PRN PRN Reason: Wound Care Bisacodyl (Dulcolax) 10 mg [place] DAILYPRN PRN PRN Reason: Constipation Cephalexin (Keflex) 500 mg PO TID [facility] Last Admin: 12/01/18 20:06 Dose: 500 mg Clonidine (Catapres) 0.1 mg PO Q4H PRN PRN Reason: SBP GREATER THAN 160 Last Admin: 11/28/18 17:57 Dose: 0.1 mg Diazepam (Valium) 10 mg PO BIDPRN PRN PRN Reason: Anxiety Last Admin: 11/30/18 00:50 Dose: 10 mg Doxycycline Hyclate (Vibramycin) 100 mg PO BID [facility] Last Admin: 12/01/18 20:06 Dose: 100 mg Enoxaparin Sodium (Lovenox) 40 mg SC 0900 [facility] Last Admin: 12/01/18 09:38 Dose: Not Given Famotidine (Pepcid) 20 mg PO BID [facility] Last Admin: 12/01/18 20:08 Dose: 20 mg Fentanyl (Duragesic) 75 mcg TD Q3D [facility] Last Admin: 11/30/18 12:18 Dose: 75 mcg Furosemide (Lasix) 40 mg PO 0900,1400 [facility] Last Admin: 12/01/18 15:07 Dose: 40 mg Guaifenesin (Robitussin Sf) 200 mg PO Q4H PRN PRN Reason: Cough Guaifenesin/Dextromethorphan (Robitussin Dm) 15 ml PO Q4H PRN PRN Reason: Cough Hydralazine HCl (Apresoline) 10 mg SLOW IVP Q4H PRN PRN Reason: Hypertension Last Admin: 11/24/18 06:49 Dose: 10 mg Lidocaine (Lidoderm 5% Patch) 1 patch TD DAILY [facility] Last Admin: 12/01/18 09:38 Dose: Not Given Lisinopril (Zestril) 10 mg PO DAILY [facility] Last Admin: 12/01/18 09:36 Dose: 10 mg Loperamide HCl (Imodium) 2 mg PO PRN PRN PRN Reason: Diarrhea/Loose Stools Loratadine (Claritin) 10 mg PO DAILYPRN PRN PRN Reason: Sinus Symptoms Miscellaneous Medication (Lidocaine Patch Removal) 0 each TOP 2100 [facility] Last Admin: 12/01/18 20:06 Dose: Not Given Morphine Sulfate (Morphine Ir) 10 mg PO Q4H PRN PRN Reason: Pain Last Admin: 12/01/18 15:18 Dose: 10 mg Ondansetron HCl (Zofran) 4 mg IVP Q6H PRN PRN Reason: Nausea/Vomiting Ondansetron HCl (Zofran Odt) 4 mg PO Q6H PRN PRN Reason: Nausea/Vomiting Polyethylene Glycol (Miralax) 17 gm PO DAILY [facility] Last Admin: 12/01/18 09:38 Dose: 17 gm Pregabalin (Lyrica) 75 mg PO BID [facility] Last Admin: 12/01/18 20:07 Dose: 75 mg Senna/Docusate Sodium (Senokot S) 2 tab PO BID [facility] Last Admin: 12/01/18 20:06 Dose: 2 tab Sodium Chloride ([place] Nasal [place] 0.65%) 0 ml EA NARE QIDPRN PRN PRN Reason: Nasal Congestion Sodium Chloride (Flush - Normal Saline) 10 ml IVF PRN PRN PRN Reason: Saline Flush Throat Lozenges (Cepastat Lozenges) 1 tiffanie PO Q2H PRN PRN Reason: Sore Throat Tramadol HCl (Ultram) 50 mg PO Q6H PRN PRN Reason: Pain Last Admin: 11/23/18 20:02 Dose: 50 mg Zolpidem Tartrate (Ambien) 5 mg PO HSPRN PRN PRN Reason: Insomnia Last Admin: 12/01/18 00:35 Dose: 5 mg
[2018-12-02] MEDS: Diazepam 5 MG TAB PO PRN (00:26)
[2018-12-02] MEDS: Atenolol 50 MG TAB PO SCH (05:32)
[2018-12-02] MEDS: Lisinopril 10 MG TAB PO SCH (07:49)
[2018-12-02] MEDS: Pregabalin 75 MG CAP PO SCH (07:50)
[2018-12-02] MEDS: Senokot S 8.6-50 MG TAB PO SCH (07:50)
[2018-12-02] MEDS: HYDROcodone/Acetaminophen 10/325 mg Tablet PO PRN ×2 (07:51→12:18)
[2018-12-02] MEDS: Furosemide 40 MG TAB PO SCH (07:52)
[2018-12-02] MEDS: Doxycycline 100 MG CAP PO SCH (07:52)
[2018-12-02] MEDS: Famotidine 20 MG TAB PO SCH (07:52)
[2018-12-02] MEDS: Lidocaine 5% Patch TD SCH (07:53)
[2018-12-02] MEDS: Enoxaparin Sodium 40 MG/0.4 ML SYRINGE SC SCH (07:53)
[2018-12-02] MEDS: Polyethylene Glycol 3350 17 GM Packet PO SCH (07:54)
[2018-12-02 08:01] VITALS: BP 179/66; TEMP 97.6
[2018-12-02] MEDS: Morphine IR 10 MG/5 ML UDCUP PO PRN (09:24)
[2018-12-02] MEDS: Cephalexin 250 MG CAP PO SCH (10:03)
--- NOTE | 2018-12-02 11:22 | DIS ---
DATE OF ADMISSION: 11/20/2018 DATE OF DISCHARGE: 12/02/2018 PRIMARY CARE PHYSICIAN: Ken Bryan MD DISCHARGE DISPOSITION: Home with home health. PRIMARY DISCHARGE DIAGNOSES: Cellulitis at amputation stump on the left above-knee amputation, intractable pain. SECONDARY DISCHARGE DIAGNOSES: 1. Tobacco abuse disorder. 2. Peripheral vascular disease. 3. Obesity with body mass index of 38. 4. Macrocytic anemia. 5. Hypertension. 6. Gastroesophageal reflux disease. 7. Chronic obstructive pulmonary disease. 8. Chronic kidney disease stage 3. 9. Chronic pain disorder. 10. Dyslipidemia. 11. History of left above-knee amputation. PRIMARY PROCEDURE/OPERATION: None. RADIOLOGICAL INVESTIGATION: Chest x-ray, normal. Echocardiography showed EF 50% to 55%. SIGNIFICANT LABORATORY DATA: WBC 10.7, hemoglobin 14.5, and platelets are 297. INR 1.1. Sodium 136, potassium 3.9, BUN 16, creatinine 0.88, and calcium 9.5. LFT, normal. Blood culture, negative. DISCHARGE MEDICATIONS: 1. Tenormin 50 mg p.o. b.i.d. 2. Diazepam 10 mg p.o. b.i.d. p.r.n. 3. Ambien CR 12.5 mg p.o. nightly. 4. Lasix 40 mg p.o. b.i.d. 5. [place] 10, one tablet q.8h p.r.n. 6. Lisinopril 10 mg p.o. daily. 7. MiraLAX 17 g p.o. daily. 8. Lyrica 75 mg b.i.d. 9. Florastor 250 mg p.o. daily for 15 days. 10. Keflex 500 mg p.o. t.i.d. for 15 days. 11. Doxycycline 100 mg p.o. b.i.d. for 15 days. 12. Fentanyl patch 75 mcg transdermal every 3 days. 13. Lidoderm patch every topical application as directed. CONTRAINDICATION: None. CODE STATUS: Full code. INPATIENT SHIPPING CHECKER: Dr. Packer was consulted for pain management. Dr. Yaakov Villarreal was consulted for amputation stump site infection. Dr. Ayon evaluated this patient for second opinion. TEST RESULTS PENDING ON DISCHARGE: None. ALLERGIES: ZOSYN. DISCHARGE PLAN: Posthospital, the patient is planned for discharge to home with home health. Subsequently, the patient will follow up with Pain Clinic, Dr. Yaakov Villarreal. HOSPITAL COURSE: A 58-year-old male with above-mentioned medical problem, who was admitted by Dr. Coppola. Please see his H and P for further detail. He was admitted on November 20, 2018. On admission, the patient was having intractable pain. He was having ulceration with cellulitis finding at left AKA stump site, which was treated with broad-spectrum antibiotic therapy while in hospital. Upon discharge, we changed to Keflex and doxycycline. During this admission, we consulted Dr. Yaakov Villarreal and he recommended that this patient is no longer a candidate for any kind of a surgical intervention at this point because of his ongoing tobacco abuse disorder, as well as his left AKA, will require disarticulation of the hip joint and this would be major surgery, which has high mortality. We also obtained second opinion from Orthopedic Physician per the patient's request and they also recommended to treat conservatively with wound care and antibiotic therapy. The patient remained in the hospital this long because his pain was uncontrollable and that is why we consulted pain specialist and we started on Duragesic patch. Above-mentioned medication adjustment was done. Finally, the patient has pain improved and he is agreed to go home. PHYSICAL EXAMINATION: VITAL SIGNS I have seen and examined the patient at bedside today. Currently, temperature 97.6, pulse 61, respiratory rate 16, saturation 94% on room air, and blood pressure 179/66. Weight 246 pounds. GENERAL: The patient is currently alert, awake, and in no obvious acute distress. LUNGS: Clear without any rhonchi or rales. CARDIAC: S1 and S2. Regular without any murmur. ABDOMEN: Soft and benign. Obesity present. EXTREMITIES: Right lower extremity edema, left AKA site wound with dressing. NEUROLOGIC: Nonfocal examination. This patient was noncompliant. While in the hospital, he was going outside for smoking every day and he was also refusing for wound care while in hospital. This patient has chronic pain and that is why he needs pain management followup. His vitals remained stable. At this point, this patient does not require hospital care. He needs outpatient followup. While in hospital, he had edema of right lower extremity and that is why we did echocardiography and we treated him with Lasix and his edema significantly improved. Also, changed his amlodipine to lisinopril because he does not have any allergic reaction with lisinopril and the amlodipine is known to cause edema and that is why the patient requested to change amlodipine to lisinopril, which was done during this admission. Job ID: [id number]
--- NOTE | 2018-12-02 11:36 | PDOC.PN ---
- Subjective Encounter Start Date: 12/02/18 Encounter Start Time: 07:45 Patient seen and examined. No new complaints. No overnight events - Objective Resuscitation Status - Order Detail: 11/20/18 11:41 Resuscitation Status Routine Resuscitation Status: FULL: Full Resuscitation MAR Reviewed: Yes Vital Signs & Weight: Vital Signs (12 hours) Temp Pulse Resp BP BP Pulse Ox 12/02/18 08:00 94 L 12/02/18 07:54 97.6 F 61 16 179/66 H 94 L 12/02/18 07:49 150/73 H 12/02/18 05:32 66 12/02/18 04:00 97.4 F L 66 16 150/73 H 91 L 12/02/18 00:00 98.8 F 55 L 16 109/67 94 L Weight Admit Weight 246 lb 6 oz Weight 246 lb 6 oz I&O: 12/01/18 12/02/18 12/03/18 06:59 06:59 06:59 Intake Total 800 240 Balance 800 240 Result Diagrams: 11/21/18 04:35 11/21/18 04:35 Phys Exam - Physical Examination Constitutional: NAD HEENT: PERRLA, moist MMs, sclera anicteric Neck: no JVD, supple Respiratory: no wheezing, no rales, no rhonchi Cardiovascular: RRR, no significant murmur, no rub Gastrointestinal: soft, non-tender, no distention, positive bowel sounds left aka stump dressing, right leg mild edema Neurological: non-focal, normal sensation Lymphatic: no nodes Psychiatric: normal affect, A&O x 3 Skin: no rash, normal turgor Dx/Plan (1) Amputation stump infection Code(s): T87.40 - INFECTION OF AMPUTATION STUMP, UNSPECIFIED EXTREMITY Status : Acute (2) Above knee amputation of left lower extremity Code(s): Z89.612 - ACQUIRED ABSENCE OF LEFT LEG ABOVE KNEE Status: Chronic Comment: with stump pain (3) CAD (coronary artery disease) Code(s): I25.10 - ATHSCL HEART DISEASE OF [place] CORONARY ARTERY W/O ANG PCTRS Status: Chronic Qualifiers: (4) CKD (chronic kidney disease) stage 3, GFR 30-59 ml/min Status: Chronic (5) COPD (chronic obstructive pulmonary disease) Status: Chronic Qualifiers: (6) Chronic prescription opiate use Code(s): Z79.891 - RESEARCH NUTRITIONIST (CURRENT) USE OF OPIATE ANALGESIC Status: Chronic (7) Dyslipidemia Code(s): E78.5 - HYPERLIPIDEMIA, UNSPECIFIED Status: Chronic (8) GERD (gastroesophageal reflux disease) Code(s): K21.9 - GASTRO-ESOPHAGEAL REFLUX DISEASE WITHOUT ESOPHAGITIS Status: Chronic Qualifiers: (9) HTN (hypertension) Code(s): I10 - ESSENTIAL (PRIMARY) HYPERTENSION Status: Chronic Qualifiers: (10) Macrocytic anemia Code(s): D53.9 - NUTRITIONAL ANEMIA, UNSPECIFIED Status: Chronic (11) Obesity (BMI 30-39.9) Code(s): E66.9 - OBESITY, UNSPECIFIED Status: Chronic (12) PVD (peripheral vascular disease) Code(s): I73.9 - PERIPHERAL VASCULAR DISEASE, UNSPECIFIED Status: Chronic (13) Tobacco abuse Code(s): Z72.0 - TOBACCO USE Status: Chronic - Plan cont current plan of care, continue antibiotics, social media coordinator * medication reviewed as below * symptomatic treatment * see discharge rain. Review of Systems - Review of Systems ENT: negative: Ear Pain, Ear Discharge, Nose Pain, Nose Discharge, Nose Congestion, Mouth Pain, Mouth Swelling, Throat Pain, Throat Swelling, Other Respiratory: negative: Cough, Dry, Shortness of Breath, Hemoptysis, SOB with Excertion, Pleuritic Pain, Sputum, Wheezing Cardiovascular: negative: chest pain, palpitations, orthopnea, paroxysmal nocturnal dyspnea, edema, light headedness, other Gastrointestinal: negative: Nausea, Vomiting, Abdominal Pain, Diarrhea, Constipation, Melena, Hematochezia, Other Genitourinary: negative: Dysuria, Frequency, Incontinence, Hematuria, Retention , Other Musculoskeletal: Leg Pain. negative: Neck Pain, Shoulder Pain, Arm Pain, Back Pain, Hand Pain, Foot Pain, Other - Medications/Allergies Allergies/Adverse Reactions: Allergies Allergy/AdvReac Type Severity Reaction Status Date / Time piperacillin [From Zosyn] Allergy Verified 11/27/18 18:32 tazobactam [From Zosyn] Allergy Verified 11/27/18 18:32 Medications: Current Medications Acetaminophen (Tylenol) 650 mg PO Q4H PRN PRN Reason: Headache/Fever Last Admin: 11/23/18 11:01 Dose: 650 mg Hydrocodone Bitart/Acetaminophen ([place] 10/325) 1 tab PO Q4H PRN PRN Reason: Pain Last Admin: 12/02/18 07:51 Dose: 1 tab Artificial Tears (Tears Naturale) 2 drop EA EYE PRN PRN PRN Reason: Dry Eyes Atenolol (Tenormin) 50 mg PO 0600,1800 [facility] Last Admin: 12/02/18 05:32 Dose: 50 mg Bisacodyl (Dulcolax) 10 mg [place] DAILYPRN PRN PRN Reason: Constipation Cephalexin (Keflex) 500 mg PO TID [facility] Last Admin: 12/02/18 10:03 Dose: 500 mg Clonidine (Catapres) 0.1 mg PO Q4H PRN PRN Reason: SBP GREATER THAN 160 Last Admin: 11/28/18 17:57 Dose: 0.1 mg Diazepam (Valium) 10 mg PO BIDPRN PRN PRN Reason: Anxiety Last Admin: 12/02/18 00:26 Dose: 10 mg Doxycycline Hyclate (Vibramycin) 100 mg PO BID [facility] Last Admin: 12/02/18 07:52 Dose: 100 mg Enoxaparin Sodium (Lovenox) 40 mg SC 0900 [facility] Last Admin: 12/02/18 07:53 Dose: Not Given Famotidine (Pepcid) 20 mg PO BID [facility] Last Admin: 12/02/18 07:52 Dose: 20 mg Fentanyl (Duragesic) 75 mcg TD Q3D [facility] Last Admin: 11/30/18 12:18 Dose: 75 mcg Furosemide (Lasix) 40 mg PO 0900,1400 [facility] Last Admin: 12/02/18 07:52 Dose: 40 mg Guaifenesin (Robitussin Sf) 200 mg PO Q4H PRN PRN Reason: Cough Guaifenesin/Dextromethorphan (Robitussin Dm) 15 ml PO Q4H PRN PRN Reason: Cough Hydralazine HCl (Apresoline) 10 mg SLOW IVP Q4H PRN PRN Reason: Hypertension Last Admin: 11/24/18 06:49 Dose: 10 mg Lidocaine (Lidoderm 5% Patch) 1 patch TD DAILY [facility] Last Admin: 12/02/18 07:53 Dose: 1 patch Lisinopril (Zestril) 10 mg PO DAILY [facility] Last Admin: 12/02/18 07:49 Dose: 10 mg Loperamide HCl (Imodium) 2 mg PO PRN PRN PRN Reason: Diarrhea/Loose Stools Loratadine (Claritin) 10 mg PO DAILYPRN PRN PRN Reason: Sinus Symptoms Miscellaneous Medication (Lidocaine Patch Removal) 0 each TOP 2100 [facility] Last Admin: 12/01/18 20:06 Dose: Not Given Morphine Sulfate (Morphine Ir) 10 mg PO Q4H PRN PRN Reason: Pain Last Admin: 12/02/18 09:24 Dose: 10 mg Ondansetron HCl (Zofran) 4 mg IVP Q6H PRN PRN Reason: Nausea/Vomiting Ondansetron HCl (Zofran Odt) 4 mg PO Q6H PRN PRN Reason: Nausea/Vomiting Polyethylene Glycol (Miralax) 17 gm PO DAILY [facility] Last Admin: 12/02/18 07:54 Dose: 17 gm Pregabalin (Lyrica) 75 mg PO BID [facility] Last Admin: 12/02/18 07:50 Dose: 75 mg Senna/Docusate Sodium (Senokot S) 2 tab PO BID [facility] Last Admin: 12/02/18 07:50 Dose: 2 tab Sodium Chloride ([place] Nasal [place] 0.65%) 0 ml EA NARE QIDPRN PRN PRN Reason: Nasal Congestion Sodium Chloride (Flush - Normal Saline) 10 ml IVF PRN PRN PRN Reason: Saline Flush Throat Lozenges (Cepastat Lozenges) 1 tiffanie PO Q2H PRN PRN Reason: Sore Throat Tramadol HCl (Ultram) 50 mg PO Q6H PRN PRN Reason: Pain Last Admin: 11/23/18 20:02 Dose: 50 mg Zolpidem Tartrate (Ambien) 5 mg PO HSPRN PRN PRN Reason: Insomnia Last Admin: 12/01/18 00:35 Dose: 5 mg
== END 2018-12-02 12:27 | disposition home health service (06) | DRG 565 ==
LOC: ERS 02:44 → T4-B 03:00
PROVIDERS: ADMIT Internal Medicine; ATTEND Internal Medicine
DX: T87.44 Infection of amputation stump, left lower extremity (principal); L03.116 Cellulitis of left lower limb; F41.9 Anxiety disorder, unspecified; I12.9 Hypertensive chronic kidney disease with stage 1 through stage 4 chronic kidney disease, or unspecified chronic kidney disease; N18.3 Chronic kidney disease, stage 3 (moderate); J44.9 Chronic obstructive pulmonary disease, unspecified; E78.5 Hyperlipidemia, unspecified; K21.9 Gastro-esophageal reflux disease without esophagitis; I73.9 Peripheral vascular disease, unspecified; F12.10 Cannabis abuse, uncomplicated; G89.4 Chronic pain syndrome; D63.1 Anemia in chronic kidney disease; D53.9 Nutritional anemia, unspecified; E66.9 Obesity, unspecified; F17.210 Nicotine dependence, cigarettes, uncomplicated; Z89.612 Acquired absence of left leg above knee; Z86.718 Personal history of other venous thrombosis and embolism; I25.2 Old myocardial infarction; Z90.49 Acquired absence of other specified parts of digestive tract; Z88.6 Allergy status to analgesic agent; Z88.5 Allergy status to narcotic agent; Z79.891 Long term (current) use of opiate analgesic; Z68.38 Body mass index [BMI] 38.0-38.9, adult; Z91.19 Patient's noncompliance with other medical treatment and regimen
CPT/HCPCS: 36415; 71045; 80048; 80053; 80202; 83880; 85025; 85610; 85730; 87040; 87070; 87076; 87205; 93005; 93010; 93306; 96374; 96375; 97602; A4218; J0360; J1650; J1940; J2270; J2405; J2543; J3010; J3370; J3490; J7050

== ENCOUNTER 2018-12-24 11:14 | Outpatient (CLI) | payer MEDICARE ==
--- NOTE | 2018-12-24 13:46 | PRG ---
DATE OF SERVICE: 12/24/2018 HISTORY: Mr. Silvia De Leon is a 58-year-old gentleman, who presents to the [facility] for evaluation of a wound of his left dsrnh-fcf-oxym amputation stump. Since the patient's last visit to the Wound Center, Mr. De Leon was admitted to [facility] with cellulitis of his left irxnk-xtd-ttku amputation stump. Today, the patient states that he has been receiving dressing changes of Medihoney with the assistance of Home Health. Again, the patient complains of pain associated with his left syzqv-ugi-pilk amputation stump, for which he is being seen by a specialist in Pain Management. PHYSICAL EXAMINATION: VITAL SIGNS: Temperature 97.9, pulse 68, respirations 20, and blood pressure 186/79. EXTREMITIES: A wound of the left rnmzc-wsf-ceis amputation stump is present, which measures approximately 10.5 x 14.0 cm. No purulent drainage is associated with the wound. No cellulitis of the left vqdcl-xkt-rvuh amputation stump is appreciated. Maceration of the skin of the periwound is noted. The wound again is tender to palpation. ASSESSMENT AND PLAN: 1. Wound of left eeqmf-xou-gfgj amputation stump as described above. Dressing changes of Medihoney and Allevyn will be continued 3 times per week after cleansing and irrigation with the assistance of Home Health. A barrier cream to the periwound will also be continued at the time of dressing changes. 2. Hypertension. 3. Peripheral vascular disease. Job ID: [id number]
== END 2018-12-24 11:15 | disposition home or self-care (01) ==
LOC: WCC 11:14
PROVIDERS: ATTEND Family Medicine
DX: T81.89XD Other complications of procedures, not elsewhere classified, subsequent encounter (principal); I10 Essential (primary) hypertension; I73.9 Peripheral vascular disease, unspecified

== ENCOUNTER 2019-01-05 02:05 | Emergency (ER) | payer MEDICARE ==
[2019-01-05] MEDS ORDERED: Morphine 4 MG/ML VIAL ONE (03:21)
== END 2019-01-05 03:53 | disposition home or self-care (01) ==
LOC: ERS 02:05
DX: L97.929 Non-pressure chronic ulcer of unspecified part of left lower leg with unspecified severity (principal); G89.29 Other chronic pain; Z71.6 Tobacco abuse counseling; I10 Essential (primary) hypertension; F41.9 Anxiety disorder, unspecified; F17.210 Nicotine dependence, cigarettes, uncomplicated; Z79.899 Other long term (current) drug therapy
CPT/HCPCS: 96374; 99406; J2270

== ENCOUNTER 2019-02-04 16:07 | Outpatient (CLI) | payer MEDICARE ==
[~2019-02-04 16:07] MED LIST changes: +Lidocaine 2% 11 ML SYR ONE
--- NOTE | 2019-02-04 16:35 | PRG ---
DATE OF SERVICE: 02/04/2019 HISTORY: Mr. Silvia De Leon is a 58-year-old gentleman, who presents to the Wound Center for evaluation of a wound of his left ckqbf-eqg-yfuh amputation stump. The patient was previously admitted to [facility] with cellulitis of his left upnfb-hik-zmub amputation stump. Since the patient's last visit, Mr. De Leon has been receiving dressing changes of Medihoney with the assistance of Home Health. Again, however, the patient complains of severe pain associated with his left sdiod-ghd-oxdt amputation stump wound. He states that he is taking [place] as per Dr. Bryan and reiterates that he is no longer being seen by a specialist in Pain Management. PHYSICAL EXAMINATION: VITAL SIGNS: Temperature 97.7, pulse 119, blood pressure 168/78. EXTREMITIES: A wound of the left pzpeh-bwe-rvid amputation stump is present, which measures approximately 9.0 x 10.0 cm. The wound has been into 2 smaller wounds by a bridge of skin. Granulation tissue is present within the margins of each wound. No purulent drainage is associated with either wound. No cellulitis of the left symju-avz-stmw amputation stump is present. No maceration of the skin of the periwound is noted. The wound is again tender to palpation. ASSESSMENT AND PLAN: 1. Wound of left mzerv-vel-eoph amputation stump as described above. Dressing changes of Medihoney and Allevyn will be continued 3 times per week after cleansing and irrigation with the assistance of Home Health. Gauze will be continued as needed at the time of dressing changes. A barrier cream to the periwound will also be continued at the time of dressing changes. I will see Mr. De Leon again in 2 weeks. 2. Hypertension. 3. Peripheral vascular disease. Transcutaneous oxygen mapping of the left mnbqu-fgb-idgw amputation stump will be obtained at the time of the patient's next visit. 4. Tobacco use. Once again, the patient has been encouraged to discontinue the use of all tobacco. Job ID: [id number]
== END 2019-02-04 16:08 | disposition home or self-care (01) ==
LOC: WCC 16:07
PROVIDERS: ATTEND Family Medicine
DX: T87.89 Other complications of amputation stump (principal); S71.102D Unspecified open wound, left thigh, subsequent encounter; I73.9 Peripheral vascular disease, unspecified; I10 Essential (primary) hypertension; Z72.0 Tobacco use
CPT/HCPCS: A4218

== ENCOUNTER 2019-02-23 14:44 | Outpatient (CLI) | payer MEDICARE ==
--- NOTE | 2019-02-23 17:48 | PRG ---
DATE OF SERVICE: 02/23/2019 HISTORY: Mr. Silvia De Leon is a 58-year-old gentleman, who presents to the Wound Center for evaluation of a wound of his left egcey-odx-bgqb amputation stump. The patient was previously admitted to [facility] with cellulitis of his left whrnu-odh-mlpr amputation stump. Since the patient's last visit, Mr. De Leon has been receiving dressing changes of Medihoney with the assistance of Home Health. The patient states that the cost of Santyl was prohibitive again; however, the patient complains of severe pain associated with his left ppmjv-yyh-fjlm amputation stump wound. The patient is utilizing a fentanyl patch for pain management. PHYSICAL EXAMINATION: VITAL SIGNS: Temperature 97.7, pulse 85, respirations 22, blood pressure 137/73. EXTREMITIES: A wound of the left jeskr-qly-vwas amputation stump is present, which measures approximately 10.0 x 18.0 cm. A large portion of the wound is covered by necrotic tissue. A small amount of granulation tissue is visible within the wound margins. No purulent drainage is associated with the wound. Erythema of the skin surrounding the wound is present. No maceration of the skin of the periwound is noted. Again, the wound is exquisitely tender to palpation. ASSESSMENT AND PLAN: 1. Large wound of left islbn-doh-dkrn amputation stump as described above. Dressing changes of Medihoney will be continued with the assistance of Home Health. The patient has been given prescriptions for Keflex 500 mg, #42, 1 p.o. t.i.d. x14 days and doxycycline 100 mg, #28, one p.o. b.i.d. x14 days. The patient has also been given a prescription for quarter-strength Dakin's for cleansing at the time of dressing changes. I will see Mr. De Leon again in 4 weeks. 2. Hypertension. 3. Peripheral vascular disease. Transcutaneous oxygen mapping of the left abfuf-wui-avjw amputation stump was obtained today and revealed hypoxia of the periwound values. 4. Tobacco use. Again, the patient has been strongly encouraged to discontinue the use of all tobacco. I have explained to the patient that once he has discontinued the use of tobacco, he may be a candidate for hyperbaric oxygen therapy and/or intraoperative debridement with skin graft placement. Job ID: [id number]
--- NOTE | 2019-02-25 02:10 | TCOM ---
DATE OF STUDY: 02/23/2019 NAME OF STUDY: Transcutaneous oximetry assessment. CLINICAL INFORMATION: Mr. Silvia De Leon is a 58-year-old gentleman with a past medical history significant for hypertension and peripheral vascular disease. The patient has a large wound of his left gakut-zwq-nezs amputation stump. He is undergoing transcutaneous oxygen mapping of the distal left iamxp-cse-qayh amputation stump to determine his need and suitability for treatment with hyperbaric oxygen. IMPRESSION: The chest reference value is depressed consistent with a central oxygenation deficiency. All three periwound values are significant for hypoxia under ambient conditions. The response of all values to hyperoxic challenge is consistent with significant regional ischemia. Vascular evaluation appears warranted prior to a trial of hyperbaric oxygen therapy in addition to in-chamber TCOM to evaluate for the presence of hypoxia reversible with the administration of hyperbaric oxygen. Job ID: [id number]
== END 2019-02-23 14:45 | disposition home or self-care (01) ==
LOC: WCC 14:44
PROVIDERS: ATTEND Family Medicine
DX: T81.89XD Other complications of procedures, not elsewhere classified, subsequent encounter (principal)

== ENCOUNTER 2019-04-30 16:08 | Outpatient (CLI) | payer MEDICARE ==
--- NOTE | 2019-04-30 18:15 | PRG ---
DATE OF SERVICE: 04/30/2019 SUBJECTIVE HISTORY: Mr. Silvia De Leon is a 58-year-old gentleman, who presents to the Wound Center for evaluation of a wound of his left njkql-kph-xfwm amputation stump. The patient was previously admitted to [facility] with cellulitis of his left wgznw-lmr-wtbv amputation stump. Since the patient's last visit, Mr. De Leon has been receiving dressing changes of Medihoney with the assistance of Home Health. The patient previously stated that the cost of Santyl was prohibitive. Again, the patient complains of pain associated with his left acfay-xzz-mruf amputation stump wound. PHYSICAL EXAMINATION: VITAL SIGNS: Temperature 98.6, pulse 74, respirations 22, and blood pressure 141/68. EXTREMITIES: A wound of the left vaokr-tlm-ljkz amputation stump is present, which measures approximately 10.0 x 10.0 cm. The dimensions of the wound at the time of the patient's visit on 02/23/2019 were approximately 10.0 x 18.0 cm. Necrotic tissue is present within the wound margins. Granulation tissue is also visible within the wound margins. No purulent drainage is associated with the wound. Erythema of the skin surrounding the wound is present. No maceration of the skin of the periwound is noted. Again, the wound is exquisitely tender to palpation. ASSESSMENT AND PLAN: 1. Large wound of left cyvhl-taq-czrl amputation stump as described above. Dressing changes of Medihoney will be continued with the assistance of Home Health. I have encouraged the patient to continue his efforts to discontinue the use of all tobacco. I have reiterated to the patient that he may then be a candidate for hyperbaric oxygen therapy. 2. Hypertension. 3. Peripheral vascular disease. 4. Tobacco use. Job ID: [id number]
== END 2019-04-30 16:09 | disposition home or self-care (01) ==
LOC: WCC 16:08
PROVIDERS: ATTEND Family Medicine
DX: T87.89 Other complications of amputation stump (principal); I10 Essential (primary) hypertension; I73.9 Peripheral vascular disease, unspecified; Z72.0 Tobacco use; Z89.612 Acquired absence of left leg above knee